=== PATIENT | female | born 1960 | race Caucasian/White ===

== ENCOUNTER → 2018-09-27 12:12 | Outpatient (CLI) | payer OTHER, SELFPAY ==
--- NOTE | 2018-09-27 12:19 | XR_ITS ---
XR hand LT min 3V HISTORY: Posttraumatic pain ITS.REASON: LT AHND PAIN ORDERING PHYSICIAN: Francie Lauren PATIENT AGE: 58 years COMPARISON: None FINDINGS: No fracture or dislocation. No lytic or blastic change. There is normal mineralization.. The joint spaces are well-preserved. No significant degenerative/arthritic changes. No erosive changes evident.. IMPRESSION: Negative, no acute finding
--- NOTE | 2018-09-27 12:19 | XR_ITS ---
XR wrist LT min 3V HISTORY posttraumatic pain ITS.REASON: LT HAND PAIN ORDERING PHYSICIAN: Francie Lauren PATIENT AGE: 58 years Comparison: None FINDINGS: No fracture or dislocation. No lytic or blastic change. There is normal mineralization.. The joint spaces are well-preserved. No significant degenerative/arthritic changes. No erosive changes evident.. IMPRESSION: Negative wrist
== END ==
PROVIDERS: PCP Nurse Practitioner; Visit Provider Nurse Practitioner
DX: M79.642 Pain in left hand (principal)
CPT/HCPCS: 73110; 73130

== ENCOUNTER 2020-09-16 11:30 | Emergency (ER) | payer BC, SELFPAY ==
[2020-09-16 11:40] VITALS: BP 144/74; PULSE 98; RESP 20; TEMP 36.9; O2SAT 99; BMI 23.2
--- NOTE | 2020-09-16 12:03 | HMH.EDUTC ---
[facility] [place] Disposition Clinical Impression: Exposure to COVID-19 virus Disposition: Home, Self-Care Condition on Discharge: Good Instructions: Preventing the Spread of Coronavirus Discharge Instructions Additional Instructions: Drink plenty of fluids. Take tylenol for pain or fever. Return if you begin to have difficulty breathing. Follow up with your regular doctor. GO TO THE ER FOR ANY WORSENING SYMPTOMS Referrals: Ronn German MD [Primary Care Provider] - Time of Disposition: 12:04 Medical Decision Making - Medical Records Medical records reviewed: No: I reviewed the patient's medical records. - Gilson Inquiry Pt receiving controlled substance: No Vital Signs: 09/16/20 11:40 Temperature 98.4 F Temperature Source Oral Pulse Rate [Right Brachial] 98 H Respiratory Rate 20 Blood Pressure [Right Arm] 144/74 H Blood Pressure Mean [Right Arm] 97 Blood Pressure Source [Right Arm] Automatic Cuff Blood Pressure Position [Right Arm] Sitting 02 Sat by Pulse Oximetry 99 Oxygen Delivery Method Room Air [facility] [place] HPI - General Stated complaint: covid exposure Time Seen by Provider: 09/16/20 12:03 Mode of Arrival: Ambulatory Source of Information: Patient Limitations: No Limitations Description of Symptoms (Recalled from Triage Doc. by RN): PATIENT REQUESTING COVID TEST D/T EXPOSURE; C/O RUNNY NOSE HEENT Symptoms (Recalled from RN notes): No Resp Symptoms (Recalled from RN notes): No Skin Symptoms (Recalled from RN notes): No MS Symptoms (Recalled from RN notes): No Functional Status (Recalled from RN notes): WNL - History of Present Illness Provider Complaint: She was exposed to covid at her job. She denies any symptoms other than a runny nose and that is kind of normal for her. - Related Data Allergies Allergy/AdvReac Type Severity Reaction Status Date / Time No Known Allergies Allergy Verified 09/16/20 12:03 - Worker's Comp Is this a Worker's Comp case?: No [facility] History - Hepatitis A Screen Drug use history?: No High risk sexual behaviors?: No History of sexually transmitted infection?: No Currently employed?: No Childcare worker?: No Do you have indoor plumbing?: Yes Do you have electricity?: Yes Attestation statement:: This patient has been screened for Hepatitis A risk factors. I have reviewed the patient's past medical history: Yes - Social History Alcohol Intake: never Occupational Status: other ROS Obtained: Yes All systems reviewed & no additional complaints - Constitutional Constitutional: Reports system reviewed and no additional complaints, except as docu - Eyes Eyes: Reports system reviewed and no additional complaints, except as docu - ENT Ears, Nose, Mouth, and Throat: Reports system reviewed and no additional complaints, except as docu - Cardiovascular Cardiovascular: Reports system reviewed and no additional complaints, except as docu - Respiratory Respiratory: Yes system reviewed and no additional complaints, except as docu - Gastrointestinal Gastrointestingal: Reports: system reviewed and no additional complaints, except as docu Physical Exam - General General appearance: alert, in no apparent distress - Head Head exam: atraumatic, normocephalic, normal inspection - Eye Eye exam: Present: normal appearance, PERRL, EOMI - ENT ENT exam: Present: normal exam, normal oropharynx, mucous membranes moist, TM's normal bilaterally, normal external ear exam - Neck Neck exam: Present: normal inspection, full ROM, trachea midline. Absent: meningismus, lymphadenopathy - Chest Chest inspection: Present: normal inspection, symmetric chest wall rise. Absent: tenderness - Respiratory Respiratory exam: Present: normal lung sounds bilaterally. Absent: respiratory distress - Cardiovascular Cardiovascular exam: Present: regular rate, normal rhythm. Absent: JVD - Abdominal Exam Abdominal exam: Present: soft, normal bowel sounds. Ab
[2020-09-16 12:18] VITALS: BP 144/74; PULSE 98; RESP 20; TEMP 36.9; O2SAT 99
[2020-09-17 09:54] LABS: Covid-19 Nasal PCR Sendout UK Detected
--- NOTE | 2020-09-17 11:38 | PC.NURSE ---
PATIENT NOTIFIED OF POSITIVE COVID RESULTS
== END 2020-09-16 12:20 | disposition home or self-care (01) ==
PROVIDERS: Emergency Provider Nurse Practitioner Family; PCP Family Medicine
DX: U07.1 COVID-19 (principal); R03.0 Elevated blood-pressure reading, without diagnosis of hypertension
CPT/HCPCS: 99201; U0003

== ENCOUNTER 2020-09-23 10:05 | Inpatient (IN) | payer BC, SELFPAY ==
[2020-09-23] VITALS (10 sets, daily range): BP systolic 102–154; BP diastolic 57–84; PULSE 51–85; RESP 14–22; TEMP 36.8–37.2; O2SAT 90–99; BMI 29.2; BMI 33.1
--- NOTE | 2020-09-23 10:36 | XR_ITS ---
PROCEDURE: XR CHEST PORTABLE Referring Doctor: Nathaniel Lacey Patient Age:60Y CLINICAL HISTORY: low oxygen SATURATION, DYSPNEA. COVID POSITIVE COMPARISON: CR CXR CHEST(2 VIEWS-NOT PORTABLE) from 06/03/2016 CT LDCTLCAS LDCT FOR LUNG CA SCREEN from 06/24/2016 CR CXR CHEST(2 VIEWS-NOT PORTABLE) from 09/29/[address] ANGIO CHEST from 09/23/2020 FINDINGS: ap portable upright chest performed today- and compared to previous pa and lateral cxr september 2017. and a a screening ct chest from may 2016 i have also used the subsequent ct chest from today today's ct chest showed scattered bilateral infiltrates which were much more evident on ct than they are on plain film as were patient's underlying developing emphysematous changes these areas of infiltrate can be vaguely identified this cxr. most notable infiltrate on ct was at the periphery of periphery of the rul-and thus seen as a subtle stippled infiltrate and more interstitial process but there is also a subtle infiltrate seen towards the right base in the left lung small area of infiltrate and atelectasis just above left hemidiaphragm of partially obscured left hemidiaphragm. subtle wispy area infiltrate at left mid lung project over the left 3rd rib of vaguely seen. the heart appears normal to upper normal size with normal pulmonary vascularity. the rita and mediastinal structures satisfactory chest wall unremarkable IMPRESSION: BILATERAL INFILTRATE SEEN ON TODAY'S CT CHEST, ARE VERY SUBTLE AND ONLY VAGUELY SEEN TODAY'S PLAIN FILM CXR: . SUBTLE STIPPLED INFILTRATE AT THE RUL IS VAGUELY EVIDENT. . SUBTLE PATCHY INFILTRATE RIGHT AND LEFT LUNG BASE; WELL SMALL VERY SUBTLE FOCUS AT LEFT MIDLUNG CAN BE VAGUELY IDENTIFIED ON TODAY'S CXR WELL Dictated by: Santi Mclaughlin MD 09/23/2020 12:36 Santi Mclaughlin MD in [place] 09/23/2020 12:36
[2020-09-23 10:42] LABS: Basophils % 1.3 % (0.1-2.0); Eosinophils % 0.1 % (0.1-12.0); Hematocrit 50.8 % (37.0-47.0); Lymphocytes # 0.6 K/mm3 (0.7-4.5); Lymphocytes % 19.5 % (10-50); Mean Corpuscular HGB Conc 33.5 g/dL (31.8-35.4); Mean Corpuscular Hemoglobin 30.8 pg (27.0-31.2); Mean Corpuscular Volume 91.7 fl (81-99); Mean Platelet Volume 10.3 fl (7.4-10.4); Monocytes # 0.2 K/mm3 (0.1-1.0); Monocytes % 6.4 % (1.7-9.3); Neutrophils # 2.4 K/mm3 (1.8-7.8); Neutrophils % 72.7 % (37.0-80.0); Platelet Count 149 K/mm3 (142-424); Red Blood Count 5.54 M/mm3 (4.20-5.40); Red Cell Distribution Width 13.3 % (11.5-17.5); White Blood Count 3.3 K/mm3 (4.8-10.8)
[2020-09-23 10:48] LABS: Alanine Aminotransferase 35 U/L (12-78); Albumin Level 4.6 g/dl (3.5-5.0); Albumin/Globulin Ratio 1.1 (1.1-1.8); Alkaline Phosphatase 105 U/L (38-126); Aspartate Amino Transferase 57 U/L (14-36); Bilirubin,Total 0.5 mg/dl (0.2-1.3); Blood Urea Nitrogen 17 mg/dl (7-17); Calcium 9.4 mg/dl (8.4-10.2); Carbon Dioxide 30 mmol/L (22.0-30.0); Chloride 97 mmol/L (98-107); Creatinine Clearance Estimated 71 mL/min (50-200); Estimated Glomerular Filt Rate 56 ml/min (>60); GFR (African American) 68 ML/MIN (>60); Globulin 4.1 g/dL (1.3-3.2); Glucose 117 mg/dl (74-100); Sodium 134 mmol/L (136-145); Total Protein,Serum 8.7 g/dl (6.3-8.2)
--- NOTE | 2020-09-23 10:55 | CT_ITS ---
Procedure: CT ABDOMEN PELVIS W CON Referring Doctor: Nathaniel Lacey Patient Age:60Y CLINICAL INDICATION: abdo pain EPIGASTRIC PAIN WITH NAUSEA, VOMITING DIARRHEA 3 DAYS COVID POSITIVE COMPARISON: CT LDCTLCAS LDCT FOR LUNG CA SCREEN from 06/24/2016 TECHNIQUE: Axial images obtained with sagittal and coronal reformats. All CT scans at the facility use one or more dose reduction, viz: automated exposure control, ma/kV adjustment per patient size (including targeted exams where dose is matched to indication, i.e. head), or iterative reconstruction technique. FINDINGS: lower thorax: small focal areas of infiltrate and atelectasis in lung bases. for example small slightly nodular likely inflammatory focus at rml and periphery rico (axial image 2 and 3) small patchy atelectasis and likely minimal infiltrate posterior rll) axial image 2) . Abdomen: . Liver: No masses. mildly prominent intrahepatic ducts throughout liver particularly central portion of liver. this may merely reflect previous cholecystectomy changes but warrants correlation with serum bilirubin the common duct inferior to the liver and through the pancreas appears generous but normal caliber. . Gallbladder: Surgically removed. common duct inferior to the gallbladder fossa and through pancreas appears normal the size for post cholecystectomy patient the. Pancreas: no masses or peripancreatic fluid collections. spleen: unremarkable adrenals: unremarkable kidneys/ureters: unremarkable kidneys with normal enhancement. no renal calculi or obstruction. ureters unremarkable the PELVIS: THE reproductive: Hysterectomy. no adnexal masses. no free fluid pelvis Bladder: Nondistended. No obvious stones or masses. Appendix: Unremarkable. Gi Tract ---- small to moderate sliding hiatal hernia . Stomach unremarkable . Small-bowel: Slight increased fluid a distal small bowel, but no significant dilatation a few of the small bowel loops are upper normal in caliber at the upper pelvis. no wall thickness . Appendix-normal: No evidence of appendicitis. . Large bowel: liquid stool throughout the right colon, hepatic flexure and transverse colon. generous air-fluid level at 9 dilated transverse colon on axial slice 53, 51 but this reflects developing diarrhea. the left colon is fairly empty with lack of solid or liquid stool. upper normal wall thickness rectum most likely reflects lack of distension. peritoneum: no abnormal fluid collections. no obvious inflammatory changes. no free air. lymph nodes: no enlarged lymph nodes apparent. vasculature: atherosclerotic calcification lower abdominal aorta and iliac vessels but no aneurysm.. no retroperitoneal findings. bones: no acute findings or lesions minimal degenerative changes lumbar spine primarily seen as developing facet hypertrophy lower l-spine IMPRESSION: 1... Liquid Stool Throughout The Right And Transverse Colon-suggestive Of Developing Diarrhea . Increased Fluid Throughout The Distal Small Bowel With Some Small Bowel Loops Upper Normal Caliber.. . These ABOVE findings May Reflect Enterocolitis 2.. Cholecystectomy. 3.Mildly Prominent Intrahepatic Biliary Ducts Observed And Warrant Correlation With Serum Bilirubin But Most Likely Reflect Post Cholecystectomy Changes. 4. again see scattered PROBABLE small inflammatory appearing foci, along with atelectasis, AT THE lung bases bilaterally Dictated by: Santi Mclaughlin MD 09/23/2020 12:26 Santi Mclauhglin MD in [place] 09/23/2020 12:26
--- NOTE | 2020-09-23 10:56 | HMH.EDGENADL ---
ED Disposition Clinical Impression: COVID-19 virus infection, Pneumonia due to COVID-19 virus, Hypoxia Diarrhea Qualifiers: Diarrhea type: presumed infectious Qualified Code(s): R19.7 - Diarrhea, unspecified Disposition: Admitted As Inpatient Condition on Discharge: Fair - Critical Care Critical Care Time: No Attestation: On 09/23/20, the high probability of a clinically significant, sudden or life threatening deterioration of the following system(s) required my full and direct attention, intervention and personal management. The time I documented below is in addition to time spent performing reported procedures but includes the following listed in this critical care notation. Medical Decision Making - Medical Records Medical records reviewed: Yes: I reviewed the patient's medical records. MR Comment: Reviewed visit from 1 week ago with positive Covid PCR test. - Gilson Inquiry Pt receiving controlled substance: Yes Gilson was queried for this patient: No Reason not queried -: Emergent pt cond-no time Risks and benefits of using a controlled substance: were not discussed with pt by me Vital Signs: 09/23/20 10:06 09/23/20 10:36 09/23/20 11:51 Temperature 99.0 F Temperature Source Oral Pulse Rate [Left Radial] 74 67 Respiratory Rate 18 Blood Pressure [Right Arm] 132/77 144/71 H Blood Pressure Mean [Right Arm] 95 95 Blood Pressure Source [Right Arm] Automatic Cuff Automatic Cuff Blood Pressure Position [Right Arm] Sitting Sitting 02 Sat by Pulse Oximetry 90 L 95 99 Oxygen Delivery Method Room Air Nasal Cannula Nasal Cannula Oxygen Flow Rate (LPM) 2 2 09/23/20 12:14 09/23/20 12:40 Temperature Temperature Source Pulse Rate [Left Radial] 73 81 Respiratory Rate Blood Pressure [Right Arm] 152/74 H 154/84 H Blood Pressure Mean [Right Arm] 100 107 Blood Pressure Source [Right Arm] Automatic Cuff Automatic Cuff Blood Pressure Position [Right Arm] Sitting Sitting 02 Sat by Pulse Oximetry 92 L 97 Oxygen Delivery Method Nasal Cannula Nasal Cannula Oxygen Flow Rate (LPM) 2 2 - Lab Data Lab results reviewed: Yes: I reviewed the patient's lab results. Lab Results 09/23/20 10:20: WBC 3.3 L, RBC 5.54 H, Hgb 17.0 H, Hct 50.8 H, MCV 91.7, MCH 30.8, MCHC 33.5, RDW 13.3, Plt Count 149, MPV 10.3, Neut % (Auto) 72.7, Lymph % (Auto) 19.5, [place] % (Auto) 6.4, Eos % (Auto) 0.1, Baso % (Auto) 1.3, Neut # (Auto) 2.4, Lymph # (Auto) 0.6 L, [place] # (Auto) 0.2, Eos # (Auto) 0.0, Baso # (Auto) 0.0 09/23/20 10:20: Sodium 134 L, Potassium 4.0, Chloride 97 L, Carbon Dioxide 30, Anion Gap 11.0, BUN 17, Creatinine 1.00, Estimated Creat Clear 71, Estimated GFR 56 L, Est GFR ( Amer) 68, Glucose 117 H, Calcium 9.4, Total Bilirubin 0.5, AST 57 H, ALT 35, Alkaline Phosphatase 105, Total Protein 8.7 H, Albumin 4.6, Globulin 4.1 H, Albumin/Globulin Ratio 1.1 09/23/20 10:20: Lipase 78 09/23/20 10:20: SARS-CoV-2 IgG Ab (Rapid) Positive A, SARS-CoV-2 IgM Ab (Rapid) Negative Result diagrams: 09/23/20 10:20 09/23/20 10:20 Orders (Tests/Meds): ED MEDICATIONS Generic Name Dose Route Start Last Admin Trade Name Freq PRN Reason Stop Dose Admin Acetaminophen 650 mg 09/23/20 13:09 Acetaminophen 325mg Tab PO 10/23/20 13:08 Q6HP PRN Mild pain,fever,headache Ascorbic Acid 500 mg 09/23/20 13:09 Ascorbic Acid 500mg Tab PO 10/23/20 13:08 QID ROSSI Dexamethasone Sodium Phosphate 6 mg 09/23/20 13:09 Dexamethasone 4mg/Ml 1ml Vial IV 10/23/20 13:08 DAILY ROSSI Enoxaparin Sodium 40 mg 09/23/20 13:09 Enoxaparin 40mg/0.4ml Syringe SQ 10/23/20 13:08 DAILY ROSSI Ergocalciferol 50,000 unit 09/23/20 13:09 Ergocalciferol 50,000 Units (1.25mg) Capsule PO 10/23/20 13:08 WEEKLY ROSSI Famotidine 20 mg 09/23/20 13:15 Famotidine 20mg Tablet PO 10/23/20 13:14 BID ROSSI Levofloxacin/Dextrose 750 mg in 150 mls @ 100 mls/hr 09/24/20 12:45 Levofloxacin 750mg/150ml Premix I
--- NOTE | 2020-09-23 10:59 | CT_ITS ---
PROCEDURE: CT ANGIO CHEST Referring Doctor: Nathaniel Lacey Patient Age:60Y CLINCIAL INDICATION: hypoxia, pleuritic pain PATIENT COVID POSITIVE DYSPNEA SHORT OF BREATH EPIGASTRIC PAIN NAUSEA VOMITING DIARRHEA 3 DAYS COMPARISON: CT CT ABDOMEN PELVIS W CON from 09/23/2020 TECHNIQUE: iv contrast: bolus 70ml isovue 370 followed by 40 ml normal saline bolus helical axial images obtained with thickened axial along with mip p slab sagittal and coronal reformats performed on ct workstation. all ct scans at the facility use one or more dose reduction, viz: automated exposure control, ma/kv adjustment per patient size (including targeted exams where dose is matched to indication, i.e. head), or iterative reconstruction technique. FINDINGS: pulmonary arteries: no pulmonary embolus evident. good visualization pulmonary arteries overall aorta: appears satisfactory with no acute finding. no thoracic aortic aneurysm or dissection evident lungs: underlying emphysematous changes. bilateral infiltrates most evident on right right chest: Most notable region of infiltrate is seen at superimposed upon emphysematous changes at the periphery of the right upper lobe. small numerous blebs in this region. there is also several areas of small patchy infiltrates and atelectasis along the posterior and posterior medial aspect of the right lower lobe.. left chest: Small foci of peripheral infiltrate.-for example at the posterior aspect LULjust anterior to the major fissure superiorly WHERE there are 2 small areas of patchy infiltrate (axial image 25-29) . More inferiorly there is a small patchy infiltrate possible small underlying nodular density seen at the periphery of the LLL on axial slice 44... More inferiorly towards just above left hemidiaphragm at left lung bases are other areas of atelectasis with possible minor infiltrate. (axial slice 54, and 55 coronal 51) pleural spaces: no significant effusion. no evidence of pneumothorax. Heart: upper normal heart size. no significant pericardial effusion. Mediastinal and hilar structures: scattered small mediastinal lymph nodes but no mediastinal or hilar mass evident. no dominant adenopathy bony structures: no acute bony abnormalities apparent. lymph nodes: no enlarged lymph nodes evident.: upper abdomen: small hiatal hernia. cholecystectomy. IMPRESSION: No Evidence Of Pulmonary Embolism. Aorta Satisfactory. Underlying Emphysematous Changes Bilateral PULMONARY infiltrates:. Infiltrate most notable involvement At Right Chest . Most Prominent region of Infiltrate Periphery RUL. . Patchy Small Areas Of Infiltrate Elsewhere RUL, RLL, with a few small Inflammatory Foci Suggested Throughout Left Lung . Dictated by: Santi Mclaughlin MD 09/23/2020 12:05 Santi Mclaughlin MD in [place] 09/23/2020 12:05
[2020-09-23 11:04] LABS: Lipase 78 U/L (23-300)
--- NOTE | 2020-09-23 11:10 | PC.NURSE ---
pt to CT
--- NOTE | 2020-09-23 11:10 | PC.NURSE ---
Pt to rad
--- NOTE | 2020-09-23 12:47 | PC.NURSE ---
Dr German returned call
[2020-09-23 13:02] LABS: Coronavirus 19 IgG Antibody Positive (Negative); Coronavirus 19 IgM Antibody Negative (Negative)
[2020-09-23 13:15] LABS: Lactic Acid 0.9 mmol/L (0.7-2.1)
--- NOTE | 2020-09-23 14:08 | HMH.PHAVTE ---
[facility] Pharmacy VTE Monitoring - Patient Demographics Admission date: 09/23/20 Report Date: 09/23/20 Time: 14:08 Allergies/Adverse Reactions: Patient Allergies No Known Allergies Allergy (Verified 09/16/20 12:03) Height: 1.63 m Weight: 87.685 kg Patient Problems: Current Active Problems COVID-19 virus infection (Acute) Pneumonia due to COVID-19 virus (Acute) Diarrhea (Acute) Hypoxia (Acute) - VTE Risk Labs: VTE Related Lab Results Hgb 17.0 g/dL (12.2-16.2) H 09/23/20 10:20 Hct 50.8 % (37.0-47.0) H 09/23/20 10:20 Plt Count 149 K/mm3 (142-424) 09/23/20 10:20 BUN 17 mg/dl (7-17) 09/23/20 10:20 Creatinine 1.00 mg/dl (0.52-1.04) 09/23/20 10:20 Estimated Creat Clear 71 mL/min (50-200) 09/23/20 10:20 Was VTE Risk Assessment Performed: Yes VTE Score: 2 - Prophylaxis VTE Prophylaxis Ordered?: Yes Types of VTE Prophylaxis: Pharmacological Pharmacologic Type: Enoxaparin
--- NOTE | 2020-09-23 16:48 | PC.NURSE ---
Pt new admission. Currently on 2 L O2 per nasal cannula. Pt is on cont pulse ox and sats range 95-95%. No complaints voiced since arriving to floor. Lungs diminished upon auscultation. No cough noted. Abdomen soft, tender w/ active Bs in all quads. Pt did have one episode of vomitting when she was transferring from stretcher to bed when jessica to floor, which she states is partly from being dizzy when getting up and down, but has not had any since. No BM since [employer]. Pt aware that stool specimen is needed. Skin intact. No edema present. IVF infusing in LAC. Pt currently sitting in bed w/ dinner try. Call montanez w/in reach.
[2020-09-24] VITALS (7 sets, daily range): BP systolic 102–147; BP diastolic 56–72; PULSE 44–90; RESP 16–18; TEMP 36.6–37.2; O2SAT 92–96; BMI 33.0; BMI 33.1
[2020-09-24 05:11] LABS: Basophils % 1.4 % (0.1-2.0); Eosinophils % 0.2 % (0.1-12.0); Hematocrit 53.1 % (37.0-47.0); Hemoglobin 17.7 g/dL (12.2-16.2); Lymphocytes # 0.7 K/mm3 (0.7-4.5); Lymphocytes % 35.3 % (10-50); Mean Corpuscular HGB Conc 33.2 g/dL (31.8-35.4); Mean Corpuscular Volume 93.3 fl (81-99); Monocytes # 0.2 K/mm3 (0.1-1.0); Monocytes % 8.1 % (1.7-9.3); Neutrophils # 1.2 K/mm3 (1.8-7.8); Neutrophils % 54.9 % (37.0-80.0); Platelet Count 137 K/mm3 (142-424); Red Cell Distribution Width 13.2 % (11.5-17.5); White Blood Count 2.1 K/mm3 (4.8-10.8)
[2020-09-24 05:23] LABS: Alanine Aminotransferase 288 U/L (12-78); Albumin Level 4.5 g/dl (3.5-5.0); Albumin/Globulin Ratio 1.1 (1.1-1.8); Alkaline Phosphatase 253 U/L (38-126); Anion Gap 15.2 mEq/L (5-15); Aspartate Amino Transferase 315 U/L (14-36); Bilirubin,Total 0.4 mg/dl (0.2-1.3); Blood Urea Nitrogen 13 mg/dl (7-17); Calcium 9.2 mg/dl (8.4-10.2); Carbon Dioxide 23 mmol/L (22.0-30.0); Chloride 103 mmol/L (98-107); Creatinine Clearance Estimated 81 mL/min (50-200); Estimated Glomerular Filt Rate 73 ml/min (>60); GFR (African American) 88 ML/MIN (>60); Globulin 4.1 g/dL (1.3-3.2); Glucose 110 mg/dl (74-100); Potassium 4.2 mmoL/L (3.5-5.1); Sodium 137 mmol/L (136-145); Total Protein,Serum 8.6 g/dl (6.3-8.2)
--- NOTE | 2020-09-24 05:45 | PC.NURSE ---
Pt has rested well this shift. Pt is A&Ox4. Lung sounds are diminished t/o. Bowel sounds active in all 4 quads. Pt takes self to the toilet independently. Pt has had no c/o SOA this shift and continues to be on 2 L NC with 02 sats between 94-95%. No other acute changes or complaints at this time.
--- NOTE | 2020-09-24 09:22 | HMH.HP ---
*Admission Date: 09/23/20 <Natasha Benavides - 09/24/20 09:43> *Chief complaint: Feels that she is dehydrated from the diarrhea. <Natasha Benavides - 09/24/20 09:43> *History of present illness: Ms. Oliva is a 60-year-old female who is healthy and currently takes no regular medications. She presented to the [facility] emergency room after experiencing 6 days of diarrhea with 1-2 stools a day of watery brown stool. She states she was nauseated but never vomited. She did have some stomach cramping. She described a poor p.o. intake and felt dehydrated. She states she continued to void. She denies any respiratory symptoms. She did have some body aches which she associated with the diarrhea. The following is from ER documentation: She tested positive for COVID-19, had a test 1 week ago. Initially did not feel bad, but since has declined. She says that she has developed abdominal pain across her lower abdomen, diarrhea, severe nausea. The only thing she can take orally is popsicles. Very fatigued, feels dehydrated. She feels chilled, but no fevers when she takes it at home. No blood in her diarrhea. Denies cough or shortness of breath, but says she has a pain in her posterior thoracic area when she takes in a breath. She states everyone in her workplace has the Covid. With evaluation in the emergency room. CBC with a White count at 3300 with a hemoglobin of 17 hematocrit of 50.8. Electrolytes showed a sodium of 134 and potassium of 4; kidney function was normal. Liver function studies were slightly elevated on admission with AST at 57 and with repeat this a.m. at 315 with ALT at 288 and alkaline phosphatase of 253. Covid IgG was positive Covid IgM was negative; blood culture results are pending. Chest x-ray revealed bilateral infiltrates seen on CT of the chest. CT of the abdomen and pelvis reveals liquid stool throughout the right and transverse colon suggesting developing diarrhea. Also increased flow throughout the distal small bowel with some small bowel loops Possibly reflecting enterocolitis. She was thus admitted to the Covid unit and placed on Covid orders. This a.m. patient states she feels much better after receiving IV fluids. She has had no diarrhea. She is voiding without difficulty. She denies chest pain and shortness of breath. <BenavidesNatasha barry 09/24/20 09:43> [facility] History Medical History: Reports:: Hypertension <MakaylaNatasha 09/24/20 09:43> *Have you ever received a pneumonia vaccine?: No <BenavidesNatasha barry 09/24/20 09:43> *Have you received a flu vaccine this season?: No <Ntaasha Benavides 09/24/20 09:43> Comment:: Rosacea <Natasha Benavides 09/24/20 09:43> Other Surgeries: Yes: Cholecystectomy, Hysterectomy-Total <BenavidesNatasha barry 09/24/20 09:43> - *Social History Last grade of school completed: Some college <Natasha Benavides 09/24/20 09:43> Smoking End Date: Quit smoking in 2008; 80 pack/year <Natasha Benavides 09/24/20 09:43> Alcohol Intake: never <Natasha Benavides 09/24/20 09:43> *Occupational Status:: employed <Natasha Benavides 09/24/20 09:43> Housing: house <BenavidesNatasha barry 09/24/20 09:43> Household Members: spouse <Natasha Benavides 09/24/20 09:43> *Travel in the last 8 weeks: None <Natasha Benavides 09/24/20 09:43> Family Hx:: Cancer <Natasha Benavides 09/24/20 09:43> Comment: Heart disease <Natasha Benavides 09/24/20 09:43> Review of Systems - Constitutional Reports chills, Reports headache(s), Reports weakness <Natasha Benavides 09/24/20 09:43> - Eyes Denies change in vision <Natasha Benavides 09/24/20 09:43> - ENT Denies ear pain, Denies nasal congestion, Denies sore throat <Natasha Benavides 09/24/20 09:43> - *Cardiovascular Reports chest pain (On inspiration) <Natasha Benavides 09/24/20 09:43> - *Respiratory Denies cough, Denies shortness of breath <Natasha Benavides 09/24/20 09:43> - *Gastrointestinal Reports abdominal pain, Reports cramping, Reports loose stools (W
[2020-09-25] VITALS (7 sets, daily range): BP systolic 106–127; BP diastolic 45–76; PULSE 49–65; RESP 16–18; TEMP 36.7–36.8; O2SAT 92–97; BMI 34.0
--- NOTE | 2020-09-25 03:53 | PC.NURSE ---
Pt has rested well this shift. Pt is A&Ox4. Lung sounds remain diminished t/o. Pt continues to be on 2L NC with o2 sats between 94-97%. Specimen cup placed at bedside for sputum sample this shift. Active bowel sounds in all 4 quads. No BM reported this shift. Pt continues to ambulate to toilet independently and is urinating clear, light yellow urine. Pt has c/o back pain x1 this shift, with favorable results after PRN Tylenol administration. No other acute changes or complaints at this time.
[2020-09-25 05:20] LABS: Basophils % 0.2 % (0.1-2.0); Eosinophils % 0.1 % (0.1-12.0); Hematocrit 46.1 % (37.0-47.0); Lymphocytes # 0.9 K/mm3 (0.7-4.5); Lymphocytes % 18.6 % (10-50); Mean Corpuscular HGB Conc 32.9 g/dL (31.8-35.4); Mean Corpuscular Hemoglobin 30.2 pg (27.0-31.2); Mean Corpuscular Volume 91.8 fl (81-99); Monocytes # 0.3 K/mm3 (0.1-1.0); Monocytes % 5.3 % (1.7-9.3); Neutrophils # 3.8 K/mm3 (1.8-7.8); Neutrophils % 75.7 % (37.0-80.0); Platelet Count 147 K/mm3 (142-424); Red Blood Count 5.02 M/mm3 (4.20-5.40); Red Cell Distribution Width 12.9 % (11.5-17.5)
[2020-09-25 05:21] LABS: Chloride 108 mmol/L (98-107); Sodium 139 mmol/L (136-145)
[2020-09-25 05:22] LABS: Potassium 3.9 mmoL/L (3.5-5.1)
[2020-09-25 05:24] LABS: Alanine Aminotransferase 146 U/L (12-78); Albumin Level 3.7 g/dl (3.5-5.0); Albumin/Globulin Ratio 1.1 (1.1-1.8); Alkaline Phosphatase 155 U/L (38-126); Anion Gap 7.9 mEq/L (5-15); Aspartate Amino Transferase 98 U/L (14-36); Bilirubin,Total 0.3 mg/dl (0.2-1.3); Blood Urea Nitrogen 15 mg/dl (7-17); Carbon Dioxide 27 mmol/L (22.0-30.0); Creatinine Clearance Estimated 83 mL/min (50-200); Estimated Glomerular Filt Rate 63 ml/min (>60); GFR (African American) 77 ML/MIN (>60); Globulin 3.3 g/dL (1.3-3.2)
[2020-09-25 05:25] LABS: Calcium 8.9 mg/dl (8.4-10.2); Glucose 108 mg/dl (74-100)
[2020-09-25 05:35] LABS: Hemoglobin 15.2 g/dL (12.2-16.2)
[2020-09-25 10:53] LABS: Adenovirus F 40/41, stool Not Detected (NotDetected); Astrovirus Not Detected (NotDetected); Campylobacter Not Detected (NotDetected); Clostridium Difficile A/B, PCR Not Detected (NotDetected); Cryptosporidium Not Detected (NotDetected); Cyclospora Cayetanesis Not Detected (NotDetected); Entamoeba histolytica Not Detected (NotDetected); Enteroaggregative E coli Not Detected (NotDetected); Enteropathogenic E coli Not Detected (NotDetected); Enterotoxigenic E coli Not Detected (NotDetected); Giardia lamblia Not Detected (NotDetected); Norovirus Not Detected (NotDetected); Plesimonas Shigalloides, PCR Not Detected (NotDetected); Rotavirus A Not Detected (NotDetected); Salmonella, PCR Not Detected (NotDetected); Sapovirus Not Detected (NotDetected); Shiga-like toxin E coli Not Detected (NotDetected); Shigella Enterovasive E coli Not Detected (NotDetected); Vibrio Cholerae Not Detected (NotDetected); Vibrio, PCR Not Detected (NotDetected); Yersinia Entercolitica, PCR Not Detected (NotDetected)
--- NOTE | 2020-09-25 11:10 | PC.NURSE ---
Patient has been off oxygen for the last 2 hours with no complaints of SOB. Patient walked to the bathroom with no complaints of complications. Patient is currently sating 92-94%. Will continue to monitor.
--- NOTE | 2020-09-25 11:20 | P.PN_ITS ---
Internal Medicine - PN: Subj *Date: 09/25/20 *Time: 11:20 Interval history: Did not sleep well related to backache from the bed. She has had no further diarrhea. Abdominal cramping is improved. Denies shortness of breath. No significant cough. Exam Vital signs and Labs for Last 24 Hours: Temp Pulse Resp BP Pulse Ox 98.2 F 62 17 127/67 95 09/25/20 07:58 09/25/20 07:58 09/25/20 07:58 09/25/20 07:58 09/25/20 08:00 Laboratory Results - last 24 hr 09/25/20 04:35: WBC 5.0 D, RBC 5.02, Hgb 15.2 D, Hct 46.1, MCV 91.8, MCH 30.2, MCHC 32.9, RDW 12.9, Plt Count 147, MPV 11.0 H, Neut % (Auto) 75.7, Lymph % (Auto) 18.6, [place] % (Auto) 5.3, Eos % (Auto) 0.1, Baso % (Auto) 0.2, Neut # (Auto) 3.8, Lymph # (Auto) 0.9, [place] # (Auto) 0.3, Eos # (Auto) 0.0, Baso # (Auto) 0.0 09/25/20 04:35: Sodium 139, Potassium 3.9, Chloride 108 H, Carbon Dioxide 27, Anion Gap 7.9, BUN 15, Creatinine 0.90, Estimated Creat Clear 83, Estimated GFR 63, Est GFR ( Amer) 77, Glucose 108 H, Calcium 8.9, Total Bilirubin 0.3, AST 98 H D, ALT 146 H D, Alkaline Phosphatase 155 H, Total Protein 7.0, Albumin 3.7 D, Globulin 3.3 H, Albumin/Globulin Ratio 1.1 I & O for Last 24 hours: Intake & Output 09/22/20 09/23/20 09/24/20 09/25/20 11:59 11:59 11:59 11:59 Intake Total 2520 / 2520 2110 / 2110 Output Total 800 / 800 3150 / 3150 Balance 1720 / 1720 -1040 / -1040 Weight 170 lb 193 lb 4 oz 199 lb 4 oz Microbiology Reports for the Last 24 Hours: Microbiology 09/23/20 12:36 Blood Blood Culture - Preliminary Gram Positive Cocci Narrative: Sitting up in chair. Color is good. No respiratory distress. Lungs are clear. Heart is regular. Abdomen is soft and nondistended with no tenderness. Assessment and Plan (1) Diarrhea Status: Acute Qualifiers: Diarrhea type: presumed infectious Qualified Code(s): R19.7 - Diarrhea, unspecified Category: Medical Code(s): R19.7 - Diarrhea, unspecified (2) Pneumonia due to COVID-19 virus Status: Acute Category: Medical Code(s): U07.1 - COVID-19; J12.89 - Other viral pneumonia - Assessment and plan all Dx Assessment and Plan for all problems:: Continue current medications. Wean to room air today as tolerated.
--- NOTE | 2020-09-25 14:23 | PC.NURSE ---
Patients family member brought patient a heated throw blanket. Patient is currently using it due to the room being extremely cold.
--- NOTE | 2020-09-25 18:24 | PC.NURSE ---
End of shift note. Patient reports that she is feeling much better. She has had great oral intake today as well as output. Patient denies any pain. Patient denies any SOB with or without exertion. Patient has remained off her oxygen all day after being taken off this morning, her o2 sats have been 92-96% all day. Patients lungs were clear on auscultation. She continues to have a 20g in LAC with NS @ 100. She is on Lovenox for VTE Prophylaxis. Patients stool sample for diarrhea panel was collected today, awaiting results. Still unable to collect a sputum. Patient is independent and mobility is up ad juancarlos. Will continue to monitor.
[2020-09-26] VITALS: BP 111/88; PULSE 56; RESP 16; TEMP 36.7; O2SAT 93
--- NOTE | 2020-09-26 02:06 | PC.NURSE ---
Pt's o2 sats dropped to 88-89%. 1 L NC applied to pt. o2 sats up 96% at this time.
[2020-09-26 04:00] VITALS: BP 126/71; PULSE 59; RESP 16; TEMP 36.7; O2SAT 93
[2020-09-26 05:00] VITALS: BMI 34.0
--- NOTE | 2020-09-26 06:01 | PC.NURSE ---
Pt has rested well this shift. Lung sounds remain diminished. Pt continues to be on 1 L NC with 02 sats between 90-96%. Bowel sounds active in all 4 quads. Pt continues to ambulate independently to and from the toilet. Pt is urinating clear, yellow urine. No other acute changes or complaints at this time. Will continue to monitor.
[2020-09-26 06:15] LABS: Chloride 109 mmol/L (98-107); Sodium 140 mmol/L (136-145)
[2020-09-26 06:16] LABS: Potassium 3.7 mmoL/L (3.5-5.1)
[2020-09-26 06:18] LABS: Alanine Aminotransferase 95 U/L (12-78); Alkaline Phosphatase 117 U/L (38-126); Anion Gap 8.7 mEq/L (5-15); Aspartate Amino Transferase 49 U/L (14-36); Bilirubin,Total 0.2 mg/dl (0.2-1.3); Blood Urea Nitrogen 16 mg/dl (7-17); Carbon Dioxide 26 mmol/L (22.0-30.0); Creatinine Clearance Estimated 83 mL/min (50-200); Estimated Glomerular Filt Rate 73 ml/min (>60); GFR (African American) 88 ML/MIN (>60)
[2020-09-26 06:19] LABS: Albumin Level 3.3 g/dl (3.5-5.0); Albumin/Globulin Ratio 1.1 (1.1-1.8); Calcium 8.5 mg/dl (8.4-10.2); Globulin 3.1 g/dL (1.3-3.2); Glucose 90 mg/dl (74-100); Total Protein,Serum 6.4 g/dl (6.3-8.2)
[2020-09-26 06:20] LABS: Basophils % 0.4 % (0.1-2.0); Eosinophils % 0.1 % (0.1-12.0); Hematocrit 44.3 % (37.0-47.0); Hemoglobin 14.7 g/dL (12.2-16.2); Lymphocytes # 1.1 K/mm3 (0.7-4.5); Lymphocytes % 19.3 % (10-50); Mean Corpuscular HGB Conc 33.2 g/dL (31.8-35.4); Mean Corpuscular Hemoglobin 30.2 pg (27.0-31.2); Monocytes # 0.4 K/mm3 (0.1-1.0); Monocytes % 7.1 % (1.7-9.3); Neutrophils # 4.1 K/mm3 (1.8-7.8); Neutrophils % 73.1 % (37.0-80.0); Platelet Count 164 K/mm3 (142-424); Red Blood Count 4.87 M/mm3 (4.20-5.40); White Blood Count 5.6 K/mm3 (4.8-10.8)
--- NOTE | 2020-09-26 06:42 | PC.NURSE ---
Pt is now on RA. o2 sat 94%
[2020-09-26 08:00] VITALS: BP 150/89; PULSE 64; RESP 16; TEMP 36.6; O2SAT 97
--- NOTE | 2020-09-26 08:15 | HMH.ACPN2 ---
<Natasha Benavides - Last Filed: 09/26/20 08:15> Internal Medicine - PN: Subj *Date: 09/26/20 *Time: 08:15 Interval history: Patient feels she is doing well. She denies shortness of breath and cough. She is having no chest pain. She is eating and drinking well. She states her bowels did move yesterday and were a little loose. She is voiding QS. She ambulates to the bathroom without difficulty. Her biggest complaint is the cold room. CBC results are essentially normal. Blood chemistries show normal renal function and potassium. Liver function studies have improved with a decrease in AST to 49, ALT to 95 and normal alkaline phosphatase. Blood cultures are positive for Staphylococcus hominis. Patient remains on Levaquin daily, remdesivir and IV fluids at 100 an hour. Patient did have decrease in her O2 sats to 88 to 89% noted around 2 AM. She had nasal cannula reapplied at 1 L/min after which O2 sats did improve. She is currently on room air with O2 sat at 94%. Exam Vital signs and Labs for Last 24 Hours: Temp Pulse Resp BP Pulse Ox 97.9 F 64 16 150/89 H 97 09/26/20 08:00 09/26/20 08:00 09/26/20 08:00 09/26/20 08:00 09/26/20 08:00 Laboratory Results - last 24 hr 09/26/20 05:00: WBC 5.6, RBC 4.87, Hgb 14.7, Hct 44.3, MCV 91.0, MCH 30.2, MCHC 33.2, RDW 13.0, Plt Count 164, MPV 12.0 H, Neut % (Auto) 73.1, Lymph % (Auto) 19.3, [place] % (Auto) 7.1, Eos % (Auto) 0.1, Baso % (Auto) 0.4, Neut # (Auto) 4.1, Lymph # (Auto) 1.1, [place] # (Auto) 0.4, Eos # (Auto) 0.0, Baso # (Auto) 0.0 09/26/20 05:00: Sodium 140, Potassium 3.7, Chloride 109 H, Carbon Dioxide 26, Anion Gap 8.7, BUN 16, Creatinine 0.80, Estimated Creat Clear 83, Estimated GFR 73, Est GFR ( Amer) 88, Glucose 90, Calcium 8.5, Total Bilirubin 0.2, AST 49 H D, ALT 95 H D, Alkaline Phosphatase 117, Total Protein 6.4, Albumin 3.3 L D, Globulin 3.1, Albumin/Globulin Ratio 1.1 I & O for Last 24 hours: Intake & Output 09/23/20 09/24/20 09/25/20 09/26/20 11:59 11:59 11:59 11:59 Intake Total 2520 / 2520 2110 / 2110 3750 / 3750 Output Total 800 / 800 3150 / 3150 2350 / 2350 Balance 1720 / 1720 -1040 / -1040 1400 / 1400 Weight 170 lb 193 lb 4 oz 199 lb 4 oz 199 lb 3.99 oz Microbiology Reports for the Last 24 Hours: Microbiology 09/23/20 12:36 Blood Blood Culture - Preliminary Staphylococcus hominis 09/23/20 12:36 Blood Blood Culture - Preliminary NO GROWTH AFTER 48 HOURS - Constitutional no acute distress Comments: Sitting on the bedside and appears comfortable with many blankets wrapped around her - *Routine Respiratory Exam Present: CTA bilaterally (Anteriorly and posteriorly) - *Routine Cardiovascular Exam Present: RRR - *Routine Abdominal Exam Present: soft. Absent: tenderness - *Routine Extremities Exam Absent: edema, calf tenderness - *Routine Neurological Exam Present: alert, oriented X3 Assessment and Plan (1) Diarrhea Status: Acute Qualifiers: Diarrhea type: presumed infectious Qualified Code(s): R19.7 - Diarrhea, unspecified Category: Medical Code(s): R19.7 - Diarrhea, unspecified (2) Pneumonia due to COVID-19 virus Status: Acute Category: Medical Code(s): U07.1 - COVID-19; J12.89 - Other viral pneumonia (3) Transaminitis Status: Acute Category: Medical Code(s): R74.01 - Elevation of levels of liver transaminase levels - Assessment and plan all Dx Assessment and Plan for all problems:: will repeat CXR; saline lock; discussed warming the room with the nurse; continue with Levaquin <Ronn German - Last Filed: 09/26/20 08:46> Internal Medicine - PN: Subj *Date: 09/26/20 *Time: 08:46 Exam Vital signs and Labs for Last 24 Hours: Temp Pulse Resp BP Pulse Ox 97.9 F 64 16 150/89 H 97 09/26/20 08:00 09/26/20 08:00 09/26/20 08:00 09/26/20 08:00 09/26/20 08:00 Laboratory Results -
--- NOTE | 2020-09-26 08:32 | XR_ITS ---
PROCEDURE: XR CHEST PORTABLE CLINICAL HISTORY: f/u pneumonia Pneumonia follow-up COMPARISON: CR CXR CHEST(2 VIEWS-NOT PORTABLE) from 06/03/2016 CR CXR CHEST(2 VIEWS-NOT PORTABLE) from 09/29/2017 CR XR CHEST PORTABLE from 09/23/[address] ANGIO CHEST from 09/23/2020 FINDINGS: The cardiomediastinal silhouette and pulmonary vascularity are within normal limits. Infiltrate is present in the right upper lobe which is more prominent compared to 09/23/2020. Patchy infiltrate also present in the left upper lobe centrally. This is not significantly changed. No acute bony abnormalities. IMPRESSION: Right upper lobe pneumonia slightly worse. Left upper lobe pneumonia not significantly changed Dictated by: Percy Reynolds MD 09/26/2020 10:04 Percy Reynolds MD in [facility] 09/26/2020 10:04
[2020-09-26 12:00] VITALS: BP 128/64; PULSE 67; RESP 18; TEMP 36.6; O2SAT 94
[2020-09-26 16:00] VITALS: BP 101/50; PULSE 71; RESP 16; TEMP 36.6; O2SAT 93
--- NOTE | 2020-09-26 18:23 | PC.NURSE ---
Remains on room air. Lungs CTA. No cough noted. Denies SOA. Abdomen soft, non-tender w/ active BS all quads. No BM this shift. Denies N/V. Voiding w/o difficulty. Skin intact. No edema noted. Ambulates independently w/ no safety concerns. Has ate most of her trays this shift. No needs voiced to staff. Call montanez w/in reach.
[2020-09-26 20:00] VITALS: BP 119/71; PULSE 76; RESP 18; TEMP 36.6; O2SAT 91; O2SAT 92
[2020-09-27] VITALS: BP 125/65; PULSE 63; RESP 17; TEMP 36.6; O2SAT 92
--- NOTE | 2020-09-27 03:23 | PC.NURSE ---
Pt has rested well this shift. Pt is A&Ox4. Lung sounds remain clear, no cough noted. Pt did desat this shift in the upper 80's (87-89%). 1L NC applied to pt with favorable results. o2 sat is currently 93%. Active bowel sounds in all 4 quads. Pt continues to ambulate to bathroom independently. VSS. Call light within reach. No other complaints or acute changes. Will continue to monitor.
[2020-09-27 04:00] VITALS: BP 126/70; PULSE 59; RESP 17; TEMP 37.1; O2SAT 94
[2020-09-27 05:00] VITALS: BMI 34.3
[2020-09-27 05:49] LABS: Basophils % 0.4 % (0.1-2.0); Eosinophils % 0.3 % (0.1-12.0); Hematocrit 40.5 % (37.0-47.0); Hemoglobin 13.5 g/dL (12.2-16.2); Lymphocytes # 1.2 K/mm3 (0.7-4.5); Mean Corpuscular HGB Conc 33.4 g/dL (31.8-35.4); Mean Corpuscular Hemoglobin 29.9 pg (27.0-31.2); Mean Corpuscular Volume 89.6 fl (81-99); Mean Platelet Volume 10.2 fl (7.4-10.4); Monocytes # 0.5 K/mm3 (0.1-1.0); Monocytes % 10.1 % (1.7-9.3); Neutrophils # 3.2 K/mm3 (1.8-7.8); Neutrophils % 64.2 % (37.0-80.0); Platelet Count 173 K/mm3 (142-424); Red Blood Count 4.52 M/mm3 (4.20-5.40); Red Cell Distribution Width 13.1 % (11.5-17.5); White Blood Count 4.9 K/mm3 (4.8-10.8)
[2020-09-27 05:52] LABS: Chloride 108 mmol/L (98-107); Sodium 138 mmol/L (136-145)
[2020-09-27 05:55] LABS: Alanine Aminotransferase 70 U/L (12-78); Alkaline Phosphatase 92 U/L (38-126); Aspartate Amino Transferase 39 U/L (14-36); Bilirubin,Total 0.4 mg/dl (0.2-1.3); Blood Urea Nitrogen 14 mg/dl (7-17); Carbon Dioxide 26 mmol/L (22.0-30.0); Creatinine Clearance Estimated 84 mL/min (50-200); Estimated Glomerular Filt Rate 73 ml/min (>60); GFR (African American) 88 ML/MIN (>60)
[2020-09-27 05:56] LABS: Calcium 8.2 mg/dl (8.4-10.2); Glucose 84 mg/dl (74-100)
--- NOTE | 2020-09-27 06:57 | PC.NURSE ---
Pt on RA at this time. 02 sat=96%
[2020-09-27 08:00] VITALS: BP 109/70; PULSE 79; RESP 18; TEMP 36.8; O2SAT 94
--- NOTE | 2020-09-27 10:23 | SW/DCPLANNER ---
This patient is currently on 94% RA. This patient will NOT require home O2 at discharge. Patient will discharge today.
--- NOTE | 2020-09-28 12:23 | HMH.DCSUM ---
General - General Admission date:: 09/23/20 <Ronn German - 10/07/20 10:35> 09/23/20 <Irma Villagomez - 09/28/20 12:29> Discharge date: 09/27/20 <Irma Villagomez - 09/28/20 12:29> HPI HPI: Ms. Oliva is a 60-year-old female who is healthy and currently takes no regular medications. She presented to the [facility] emergency room after experiencing 6 days of diarrhea with 1-2 stools a day of watery brown stool. She states she was nauseated but never vomited. She did have some stomach cramping. She described a poor p.o. intake and felt dehydrated. She states she continued to void. She denies any respiratory symptoms. She did have some body aches which she associated with the diarrhea. The following is from ER documentation: She tested positive for COVID-19, had a test 1 week ago. Initially did not feel bad, but since has declined. She says that she has developed abdominal pain across her lower abdomen, diarrhea, severe nausea. The only thing she can take orally is popsicles. Very fatigued, feels dehydrated. She feels chilled, but no fevers when she takes it at home. No blood in her diarrhea. Denies cough or shortness of breath, but says she has a pain in her posterior thoracic area when she takes in a breath. She states everyone in her workplace has Covid. With evaluation in the emergency room. CBC with a White count at 3300 with a hemoglobin of 17 hematocrit of 50.8. Electrolytes showed a sodium of 134 and potassium of 4; kidney function was normal. Liver function studies were slightly elevated on admission with AST at 57 and with repeat this a.m. at 315 with ALT at 288 and alkaline phosphatase of 253. Covid IgG was positive Covid IgM was negative; blood culture results are pending. Chest x-ray revealed bilateral infiltrates seen on CT of the chest. CT of the abdomen and pelvis reveals liquid stool throughout the right and transverse colon suggesting developing diarrhea as well as increased flow throughout the distal small bowel with some small bowel loops Possibly reflecting enterocolitis. She was thus admitted to the Covid unit and placed on Covid orders. <Irma Villagomez - 09/28/20 12:29> Hospital Course Hospital Course: The patient stated she felt much better after receiving IV fluids. She had no diarrhea. She was voiding without difficulty. She denied chest pain and shortness of breath. She was started on routine Covid medications to include ascorbic acid, dexamethasone, Lovenox, vitamin D, Pepcid, and remdesivir as well as Levaquin for her pneumonia. Her liver studies were elevated initially and these were followed. Her liver functions improved as did her abdominal cramping. She was weaned off of her oxygen. She was able to ambulate around her room. Her blood cultures returned positive for Staph hominis. Repeat chest x-ray was ordered and it showed a right upper lobe pneumonia which was slightly worst and a left upper lobe pneumonia which was not significantly changed.The patient's oxygen normalized and she no longer felt short of breath. She denied a cough and her diarrhea resolved. She had been afebrile and was anxious to go home. Her stool panel was negative. She was stable to be discharged home. <Irma Villagomez - 10/01/20 13:33> Objective Vital signs: Temp Pulse Resp BP Pulse Ox 98.2 F 79 18 109/70 L 94 L 09/27/20 08:00 09/27/20 08:00 09/27/20 08:00 09/27/20 08:00 09/27/20 08:00 <Ronn German - 10/07/20 10:35> Temp Pulse Resp BP Pulse Ox 98.2 F 79 18 109/70 L 94 L 09/27/20 08:00 09/27/20 08:00 09/27/20 08:00 09/27/20 08:00 09/27/20 08:00 <Irma Vilalgomez - 09/28/20 12:29> Narrative: - Constitutional no acute distress Comments: Sitting on the bedside and appears comfortable with many blankets wrapped around her - *Routine Respiratory Exam Present: CTA bilaterally (Anteriorly and posteriorly)
--- NOTE | 2020-09-28 13:41 | HMH.ACPN2 ---
Internal Medicine - PN: Subj *Date: 09/27/20 *Time: 08:41 Interval history: She slept well last night. O2 sats dropped to 88% on room air. During the day her sats are normal ranging 92 to 98%. She does not feel short of breath. She denies cough. Diarrhea has resolved. No abdominal pain. She has been afebrile. She is eager to go home. Exam Vital signs and Labs for Last 24 Hours: Temp Pulse Resp BP Pulse Ox 98.2 F 79 18 109/70 L 94 L 09/27/20 08:00 09/27/20 08:00 09/27/20 08:00 09/27/20 08:00 09/27/20 08:00 Laboratory Results - last 24 hr 09/25/20 10:40: Stl Aeromonas (PCR) Not detected, Stl C. cayetanensis PCR Not detected, Stool Rotavirus (PCR) Not detected, Stl Adenov F 40/41 PCR Not detected, Stool Astrovirus (PCR) Not detected, Stool Campylobacter PCR Not detected, Stl C.difficile Tox PCR Not detected, Stool Cryptosporidium PCR Not detected, Stl E.coli Shiga Tox PCR Not detected, Stool E coli O157 PCR Not detected, Stl Enterotoxigenic E PCR Not detected, Stool EPEC (PCR) Not detected, Stool EAEC (PCR) Not detected, Stl E. histolytica PCR Not detected, Stool Giardia Lamblia PCR Not detected, Stool Salmonella PCR Not detected, Stool Sapovirus (PCR) Not detected, Stl P. shigelloides PCR Not detected, Stl Shigella/EIEC PCR Not detected, St Y.enterocolitica PCR Not detected, Stool Vibrio (PCR) Not detected, Stl Vibrio cholerae PCR Not detected, Stl Norovirus GI/GII PCR Not detected I & O for Last 24 hours: Intake & Output 09/26/20 09/27/20 09/28/20 09/29/20 11:59 11:59 11:59 11:59 Intake Total 3990 / 3990 940 / 940 Output Total 2350 / 2350 2400 / 2400 Balance 1640 / 1640 -1460 / -1460 Weight 199 lb 3.99 oz 201 lb 3.99 oz Microbiology Reports for the Last 24 Hours: Microbiology 09/23/20 12:36 Blood Blood Culture - Final NO GROWTH AFTER 5 DAYS Narrative: She is sitting in the chair at the bedside. Color is normal. No respiratory distress. Lungs are clear to auscultation. Heart is regular. Abdomen is soft and nondistended with no tenderness. Assessment and Plan (1) Diarrhea Status: Acute Qualifiers: Diarrhea type: presumed infectious Qualified Code(s): R19.7 - Diarrhea, unspecified Category: Medical Code(s): R19.7 - Diarrhea, unspecified (2) Pneumonia due to COVID-19 virus Status: Acute Category: Medical Code(s): U07.1 - COVID-19; J12.89 - Other viral pneumonia (3) Transaminitis Status: Acute Category: Medical Code(s): R74.01 - Elevation of levels of liver transaminase levels - Assessment and plan all Dx Assessment and Plan for all problems:: Stable for discharge after she gets he last dose of Remdesivir today. SHe is to remain off work as per [facility] recommendations. Telehealth f/u in 4-5 days.
== END 2020-09-27 11:10 | disposition home or self-care (01) | DRG 177 ==
LOC: ER 12:45 → ICU 14:11
PROVIDERS: Admitting Provider Family Medicine; Emergency Provider Emergency Medicine; PCP Family Medicine; Visit Provider Family Medicine
DX: U07.1 COVID-19 (principal); J12.89 Other viral pneumonia; R78.81 Bacteremia; R19.7 Diarrhea, unspecified; Z87.891 Personal history of nicotine dependence
CPT/HCPCS: 71045; 71275; 74177; 80053; 83605; 83690; 85025; 86328; 87040; 87077; 87186; 87506; 96365; 96367; 96375; 96376; 99284; J1956; J2405; Q9967

== ENCOUNTER 2020-10-20 12:33 | Emergency (ER) | payer BC, SELFPAY ==
--- NOTE | 2020-10-20 12:41 | XR_ITS ---
PROCEDURE: XR WRIST RT MIN 3V CLINICAL INDICATION: fall COMPARISON: No exams were available for comparison FINDINGS: All the carpal bones appear intact with no definite fracture seen. There is a mildly sclerotic appearing trapezium bone suggesting possibly mild avascular necrosis. The soft tissues are normal. IMPRESSION: No acute findings. Dictated by: Dr. Robert Puga MD 10/20/2020 14:03 Dr. Robert Puga MD in [facility] 10/20/2020 14:03
--- NOTE | 2020-10-20 12:41 | XR_ITS ---
PROCEDURE: XR HAND RT MIN 3V CLINICAL INDICATION: fall COMPARISON: No exams were available for comparison FINDINGS: No fracture or dislocation. No lytic or blastic change. There is normal mineralization. The joint spaces are well-preserved. No significant degenerative/arthritic changes. No erosive changes evident. Other findings:None. IMPRESSION: No acute findings. Dictated by: Dr. Robert Puga MD 10/20/2020 14:03 Dr. Robert Puga MD in [place] 10/20/2020 14:03
[2020-10-20 12:42] VITALS: BP 140/78; PULSE 84; RESP 17; TEMP 36.9; O2SAT 99; BMI 35.4
--- NOTE | 2020-10-20 12:46 | HMH.EDUTC ---
[facility] Disposition Clinical Impression: Wrist sprain Qualifiers: Encounter type: initial encounter Laterality: right Qualified Code(s): S63.501A - Unspecified sprain of right wrist, initial encounter Disposition: Home, Self-Care Condition on Discharge: Good Instructions: Wrist Sprain, DI for Wrist Sprain, How To Perform RICE (Rest, Ice, Compress, Elevate) Additional Instructions: *RICE, Rest the extremity, Ice 15-20 minutes 3-4 times daily, Compress- wear the aniceto wrap as discussed as much as possible to help reduce swelling and pain, Elevate the extremity when at rest *Aniceto wrap is for support and help control swelling, use it except in the shower. Be sure that is not to tight but not to loose either *Elevate when resting *Ibuprofen every 6-8 hours as needed for pain an inflammation. If need something more can take Tylenol in between doses of Ibuprofen to help Immediately follow up with your family doctor for new or worsening of symptoms, or no noticeable improvement over the next 3-5 days You can call back to the [facility] later this evening or tomorrow to get the official Radiology reading of your xray Follow up with your Family Doctor if needed Follow up with Orthopedics if needed Return if needed Straight to ER If any life threatening symptoms Referrals: Ronn German MD [Primary Care Provider] - As needed Rolo Sauer MD [Staff Physician] - Time of Disposition: 13:00 Medical Decision Making - Gilson Inquiry Pt receiving controlled substance: No Gilson was queried for this patient: No Vital Signs: 10/20/20 12:42 10/20/20 13:13 Temperature 98.4 F 98.4 F Temperature Source Oral Oral Pulse Rate 84 Pulse Rate [Radial] 84 Respiratory Rate 17 17 Blood Pressure 140/78 Blood Pressure [Right Arm] 140/78 Blood Pressure Mean [Right Arm] 98 Blood Pressure Source Automatic Cuff Blood Pressure Source [Right Arm] Automatic Cuff Blood Pressure Position Sitting Blood Pressure Position [Right Arm] Sitting 02 Sat by Pulse Oximetry 99 Oxygen Delivery Method Room Air Room Air - Radiology Data #1 Image(s): Hand Image Reviewed: Yes I reviewed the patient's radiology image Preliminary Findings: No Fracture Seen #2 Image(s): Wrist Image Reviewed: Yes I reviewed the patient's radiology image Preliminary Findings: No Fracture Seen Will place in Velcro wrist splint and have patient call back for official reading of xray [facility] HPI - General Stated complaint: ao 10/20 @ 0900 fell injury R hand Time Seen by Provider: 10/20/20 12:46 Mode of Arrival: Ambulatory Source of Information: Patient Limitations: No Limitations Description of Symptoms (Recalled from Triage Doc. by RN): fell in the garage this morning and injured her right hand and wrist. HEENT Symptoms (Recalled from RN notes): No Resp Symptoms (Recalled from RN notes): No Skin Symptoms (Recalled from RN notes): No MS Symptoms (Recalled from RN notes): Yes Functional Status (Recalled from RN notes): wnl - History of Present Illness Provider Complaint: Patient state that she tripped over something on the ground at home and fell States that she stuck out her hand to catch her fall and imediately started having pain in her right wrist and hand and pain is worse when she moves it States that when the pain hits it shoots from her hand into her wrist. Denies LOC and denies any other injury - Related Data Home Medications Medication Instructions Recorded Confirmed No Known Home Medications 09/23/20 09/23/20 Allergies Allergy/AdvReac Type Severity Reaction Status Date / Time No Known Allergies Allergy Verified 09/16/20 12:03 - Worker's Comp Is this a Worker's Comp case?: No [facility] History - Hepatitis A Screen Drug use history?: No High risk sexual behaviors?: No History of sexually transmitted infection?: No Currently employed?: No Childcare worker?: No Do you have indoor plumbing?: Yes Do you have electricity?: Yes At
[2020-10-20 13:13] VITALS: BP 140/78; PULSE 84; RESP 17; TEMP 36.9; O2SAT 99
== END 2020-10-20 13:14 | disposition home or self-care (01) ==
PROVIDERS: Emergency Provider Nurse Practitioner; PCP Family Medicine
DX: S63.501A Unspecified sprain of right wrist, initial encounter (principal); W01.0XXA Fall on same level from slipping, tripping and stumbling without subsequent striking against object, initial encounter; Y92.015 Private garage of single-family (private) house as the place of occurrence of the external cause
CPT/HCPCS: 29125; 73110; 73130; 99201

== ENCOUNTER 2022-09-14 09:56 | Emergency (ER) | payer BC, SELFPAY ==
[2022-09-14 10:03] VITALS: BP 102/64; PULSE 92; RESP 17; TEMP 36.8; O2SAT 96; BMI 37.0
--- NOTE | 2022-09-14 11:20 | EXP.UTC ---
Discharge Plan Disposition Patient Disposition: Home, Self-Care Condition: Good Prescriptions Prescriptions: New azithromycin [Zithromax] 250 mg tablet 250 mg PO UD DOSE PK Qty: 6 0RF Rx Instructions: Take two (2) tablets today, then one (1) tablet days #2 thru #5 benzonatate [benzonatate] 100 mg capsule 100 mg PO TIDP PRN (Reason: Cough) Qty: 30 0RF methylprednisolone 4 mg Tablets,Dose Pack 4 mg PO DIRECTED Qty: 21 0RF No Action celecoxib 200 mg capsule 200 mg PO DAILY Qty: 90 1RF oxybutynin chloride 5 mg tablet extended release 24hr 5 mg PO DAILY Qty: 90 1RF Spiriva with HandiHaler 18 mcg capsule, w/inhalation device 1 cap inhalation DAILY Qty: 1 5RF Rx Instructions: puncture 1 cap using device; one dose = 2 inhalations Referrals Follow up/Referrals: Ronn German MD [Primary Care Provider] - See instructions Activity Restrictions/Add. Instructions Additional Instructions/Restrictions: Drink plenty of fluids. Take tylenol or ibuprofen for pain or fever. Take the medications as directed. Follow up with your regular doctor. GO TO THE ER FOR ANY WORSENING SYMPTOMS Don't start the oral steroids until tomorrow, since you had the shot here today. Clinical Impressions Clinical Impression: Bronchitis, Viral syndrome Instructions Patient Instructions: DI for Acute Bronchitis Discharge ED Provider: Nick Crews [place] HPI General Stated complaint: Congestion Mode of Arrival: Ambulatory Time Seen by Provider: 09/14/22 11:20 Description of Symptoms (Recalled from Triage Doc. by RN): PT REPORTS 3 DAYS OF CHEST CONGESTION, PRODUCTIVE COUGH, CHILLS AND HEADACHE History of Present Illness Provider Complaint: She c/o 2 days of fever, chills, body aches and chest congestion. She does get pneumonia kind of frequently. Related Data Previous Rx's Medication Instructions Recorded celecoxib 200 mg capsule 200 mg PO DAILY #90 caps 09/03/22 oxybutynin chloride 5 mg 5 mg PO DAILY #90 tabs 09/03/22 tablet,extended release 24 hr tiotropium bromide 18 mcg capsule 1 cap inhalation DAILY #1 puff 09/03/22 with inhalation device (Spiriva with HandiHaler) azithromycin 250 mg tablet 250 mg PO UD DOSE PK #6 tabs 09/14/22 (Zithromax) benzonatate 100 mg capsule 100 mg PO TIDP PRN Cough #30 caps 09/14/22 methylprednisolone 4 mg tablets in 4 mg PO DIRECTED #21 tabs 09/14/22 a dose pack Allergies Allergy/AdvReac Type Severity Reaction Status Date / Time No Known Allergies Allergy Verified 09/14/22 11:46 PFSH PFSH Medical History COPD (chronic obstructive pulmonary disease) OAB (overactive bladder) Osteoarthritis of right knee Personal history of smoking Surgical History History of cholecystectomy History of hysterectomy Family History Other Cancer Heart attack Hypertension Social History Smoking Status: Never smoker alcohol intake: never current occupational status: employed and other Travel in the last 8 weeks: Inside the [place] household members: spouse housing: house current occupation: [employer], [employer] current occupational exposures/hazards: No ROS Obtained: Yes All systems reviewed & no additional complaints except as documented Constitutional Constitutional: Reports chills and Reports fever(s) Eyes Eyes: Denies eye discharge ENT Ears, Nose, Mouth, and Throat: Reports as per HPI Cardiovascular Cardiovascular: Denies chest pain Respiratory Respiratory: Denies shortness of breath, Reports chest congestion, Reports cough, Denies stridor and Denies wheezing Gastrointestinal Gastrointestingal: Reports nausea; Denies abdominal pain, constipation, cramping, diarrhea or vomiting Musculoskeletal Musculoskeletal: Denies arthralgias I
--- NOTE | 2022-09-14 11:25 | XR_ITS ---
PROCEDURE INFORMATION: Exam: XR Chest Exam date and time: 09/14/2022 12:40 PM Age: 62 years old Clinical indication: Cough TECHNIQUE: Imaging protocol: Radiologic exam of the chest. Views: 2 views. COMPARISON: CR XR CHEST PORTABLE 09/26/2020 9:37 AM FINDINGS: Lungs: Unremarkable. No consolidation. Pleural spaces: Unremarkable. No pleural effusion. No pneumothorax. Heart/Mediastinum: Unremarkable. No cardiomegaly. Bones/joints: Unremarkable. IMPRESSION: Normal chest.
[2022-09-14 11:44] VITALS: BP 125/68; PULSE 100; RESP 17; TEMP 36.8; O2SAT 97; BMI 38.4
[2022-09-14 12:47] LABS: UTC Influenza A Antigen Negative (Negative); UTC Strep Screen (Rapid) Negative (Negative)
[2022-09-14 12:48] LABS: UTC Influenza B Antigen Negative (Negative)
[2022-09-14 13:37] VITALS: BP 125/68; PULSE 100; RESP 17; TEMP 36.8
== END 2022-09-14 13:41 | disposition home or self-care (01) ==
PROVIDERS: Emergency Provider Nurse Practitioner Family; PCP Family Medicine
DX: J40 Bronchitis, not specified as acute or chronic (principal); N32.81 Overactive bladder; B34.9 Viral infection, unspecified; R51.9 Headache, unspecified; M17.11 Unilateral primary osteoarthritis, right knee; Z79.52 Long term (current) use of systemic steroids; Z79.899 Other long term (current) drug therapy; Z87.01 Personal history of pneumonia (recurrent); Z87.891 Personal history of nicotine dependence; Z82.49 Family history of ischemic heart disease and other diseases of the circulatory system; Z80.9 Family history of malignant neoplasm, unspecified
CPT/HCPCS: 71046; 87804; 87880; 99213; G0463; J0696

== ENCOUNTER 2025-10-13 15:42 | Observation (INO) | payer MEDICARE, SELFPAY ==
--- OUTSIDE RECORDS SUMMARY | 2025-08-21 07:25 | XMS_ITS | Encounter Summary ---
Author Organization [facility] [place] [address] Care Team Providers Care Residential Appliance Repair Technician Name Role Phone Unavailable Primary Care Provider Unavailabl e Reason for Visit * Auth/Cert/Inpt Specialty Diagnoses / Procedures Referred By Sultana mcdonnell Referred To Contact Diagnoses Combined forms of age-related cataract of left eye Combined forms of age-related cataract of left eye [H25.812] Procedures OR XCAPSL CTRC RMVL INSJ IO LENS PROSTH W/O ECP LEFT EYE CATARACT EXTRACTION WITH PHACOEMULSIFICATION AND INTRAOCULAR LENS Referral ID Status Reason Start Date Expiration Date Visits Re quested Visits Authorized [id number] 1 1 Encounter Details Date Type Department Care Team (Latest Contact Info) Description 08/21/2025 8:25 AM EDT - 08/21/2025 10:56 AM EDT [place] [address] Sree Colon MD [address] [place], [place] [id number] Discharge Disposition: Home or Self Care Social History Tobacco Use Types Packs/Day Years Used Date Smoking Tobacco: Former Cigarettes Passive Smoke Exposure: Past Smokeless Tobacco: Never Alcohol Use Standard Drinks/Week Comments Not Currently 0 (1 standard drink = 0.6 oz pur e alcohol) Comments No Sex and Gender Information Value Date Recorded Sex Assigned at Not on file Legal Sex Female 6:12 AM EDT Gender Identity Not on file Sexual Orientation Not on file documented as of this encounter Last Filed Vital Signs Vital Sign Reading Time Taken Comments Blood Pressure 153/93 08/21/2025 10:52 AM EDT Pulse 63 08/21/2025 10:52 AM EDT Temperature 36.7 C (98.1 F) 08/21/2025 10:52 AM EDT Respiratory Rate 18 08/21/2025 10:52 AM EDT Oxygen Saturation 99% 08/21/2025 10:52 AM EDT Inhaled Oxygen Concentration - - Weight 97 kg (213 lb 14.4 oz) 08/21/2025 8:59 AM EDT Height 157.5 cm (5' 2 ) 08/21/2025 8:59 AM EDT Body Mass Index 39.12 08/21/2025 8:59 AM EDT documented in this encounter Discharge Instructions * Discharge Instructions* Sree Colon MD - 07/25/2025 12:41 PM EDT Images from the original note were not included. +++++++++++++++++++++++++++++++++++++++++++++++++++++++++++++++++++ [facility] Discharge Instructions - Following Anesthesia We appreciate the opportunity to care for you today! Here are a few reminders as you head home: A responsible adult, 18 years or older must be in attendance until tomorrow morning. Rest quietly today. May resume usual diet as tolerated or as directed by your surgeon. Do not drive or operate any machinery until tomorrow morning or as instructed. Do not make any legal or important decisions for the next 24 hours. Do not drink alcoholic beverages or take sleeping pills for 24 hours unless otherwise directed. If you have questions or concerns regarding your anesthesia experience, please call our office at . Get Well Soon! [facility] +++++++++++++++++++++++++++++++++++++++++++++++++++++++++++++++++++ [facility] Home Care Instructions Originated: Revised: 04/12/12 Medical Record File No. SURG C-[id number] Form No.: [id number] [facility] Best wishes are extended to you on behalf of [facility] as you are discharged. We hope you are pleased with your outpatient care and services. Because we are most concerned with your health, we suggest that you carefully read the following instructions. HOME CARE INSTRUCTIONS FOLLOWING EYE SURGERY WITH DR. COLON A responsible adult, 18 years or older must be in attendance for 24 hours following discharge. Rest quietly today. Start with liquids first. If no nausea, proceed with a light meal. Drink at least 6 glasses of fluid after surgery. Do not drive or operate heavy machinery for 24 hours or as directed. No alcoholic beverages for 24 hours post op. Do not make any legal or important decisions for the next 24 hours. Check your temperature over the next five days and call your physician if greater than 101.0 F. Notify your physician if you have rash, hives, difficulty breathing, or severe nausea or vomiting. Contact your family physician for questions concerning your current home medications. If pain intensifies or pain is unrelieved with pain medication as ordered, call your physician -- If physician is unavailable, go to the Emergency Room. ADDITIONAL INSTRUCTIONS The post op drops are VERY IMPORTANT. Use them as directed on your drop schedule. Always bring your post-op bag, drops and instruction sheet to all of your visits. Tape your protective shield over your eye at bedtime or naptime for one week to prevent accidentally rubbing or bumping your eye. If you have a shield on the eye, it is to remain on until you see your doctor except for temporarily opening to place eyedrops if you are told to do so. Keep the area around your eye clean with a clean face cloth moistened with warm water. Keep soap, lotion, shampoo, hairspray make-up, etc. away from your eye for 7 days. Do not wash your hair for 24 hours. Do not rub your eye. This is the worse thing you can do while healing. No heavy lifting, bending, or straining for one week after surgery. You should have no severe pain after surgery. Your eye may feel irritated or scratchy. You may takeTylenol (acetaminophen) for discomfort as needed as long as you do not have any liver problems. If pain becomes severe, call the doctor???s office immediately. Your eye may be red or bloodshot. This will gradually lessen as your eye heals. CALL THE OFFICE IMMEDIATELY IF YOU EXPERIENCE ANY OF THE FOLLOWING: Sudden decrease in vision, severe pain, shower of floaters, flashes of light, veil-like curtain across your eye Post- operative visit: Follow up as scheduled in the next day with Dr. Colon or his associate DR. COLON'S PHONE NUMBER: or or Toll Free [phone] THERE IS AN EYE PHYSICIAN PRACTICING UROLOGIST 24 HOURS A DAY, SEVEN DAYS A WEEK--CALL FOR ANY QUESTIONS/PROBLEMS Medications prior to admission have been reviewed. Please continue medications as ordered on Current Medication Record when discharged unless otherwise noted. Anticoagulation therapy medications: Mayrestart anticoagulants on the day of surgery as directed by your primary care physician. Please continue medications only as directed by your primary care and specialist physicians. The medications on your medication reconciliation form are simply the medications you reported you were taking at thetime of this admission. We are simply asking you to resume the outpatient medications that you reported to us when you presented for your procedure. Please make sure you check with the physician(s) who prescribed your medications today when you leave the hospital to be sure you are taking the correct medications and dosages. Patient and/or responsible republican verbalizes understanding of above instructions Surgery home care instructions Dr. Colon- Page [phone] of [phone] documented in this encounter Medications at Time of Discharge ibuprofen (ADVIL;MOTRIN) 200 mg Oral Tablet Take 200 mg by mouth every 8 hours as needed for Pain. documented as of this encounter Discharge Disposition Disposition Code Departure Means Destination Comment s Home or Self Long-Term documented in this encounter Progress Notes * Christy Borrego RN - 08/21/2025 10:56 AM EDT DC education completed with patient and family. No further questions at this time. PIV removed withno complications. Family to transport home. documented in this encounter Procedure Notes * Sree Colon MD - 08/21/2025 10:38 AM EDT [facility] Procedure Note Name: Elva Oliva : 1960 Age: 65 y.o. Date of Procedure: 08/21/25 Preoperative diagnosis: Cataract left eye Postoperative diagnosis: Same Procedure: Phacoemulsification with posterior chamber intraocular lens insertion left eye. Surgeon: Sree Colon M.D. Reel Slitter: Chaya Hernandez M.D. Anesthesia: MAC with Topical Complications:None Implant: [id number] +27.5 [id number] Estimated Blood Loss: < 3cc Specimens removed: none Indications for procedure: The patient has a visually significant cataract in the eye that interferes with activities of dailyliving. The patient desires to improve their vision and following discussion of all risks, benefits, and alternatives, the patient agreed to have the procedure done. Informed consent was signed. Operative Procedure: The patient was taken to the holding area where the operative site was confirmed. Topical anesthetic and dilating medications were placed in the operative eye. The patient was brought to the operating room and placed in the supine position. The operative eye was prepped and draped in the usual sterile fashion for ophthalmic surgery. A timeout was performed. A lid speculum was introduced. A paracentesis was made for the left hand with a miniblade. Shugarcaine was injected into the anterior chamber. The anterior chamber was deepened with Viscoat. A 2.4 mm keratome was used to make a beveled temporal clear corneal incision. A cystotome and Utrada forceps were used to make a continuous curvilinear capsulorhexis. Balanced Salt Solution was used to hydrodissect the nucleus and rotation of the lens was performed. The phacoemulsification handpiece and chopper were used to groove, crack, and remove the nucleus with a total phacoemulsification power of 6.27 CDE. Cortical material was aspirated using the irrigation and aspiration handpiece. The posterior capsule was polished as needed with the irrigation aspiration handpiece. The capsular bag was deepened with Provisc and the wound was expanded for a C cartridge. Next the lens was injected into the capsular bag. The lens was rotated until well positioned. The remaining viscoelastic was aspirated with the irrigation and aspiration handpiece. Intracameralantibiotics were injected. The wounds were hydrated and found to be watertight. Glaucoma drops and betadine were applied if indicated. The patient was given a clear shield to tapeover the eye. The patient tolerated the procedure well and was transferred to the recovery room in stable condition. Sree Colon M.D. documented in this encounter Nursing Notes * Sunita Braden RN - 08/21/2025 10:21 AM EDT Lens verified prior to procedure with Dr Colon * Joy Johnson RN - 07/25/2025 10:40 AM EDT Database completed and pre procedure instructions provided. Questions encouraged and addressed. Patient repeated and verified an understanding of pre procedure instructions. * Joy Johnson RN - 07/25/2025 10:40 AM EDT Images from the original note were not included. PREPARING FOR YOUR SURGERY Date of Surgery: 08/07/2025 and 08/21/2025 Arrival time: Your surgeon may have already provided this, check your paperwork from the office. Ifnot received, call your surgeon's office. Location: [facility] Medications Take the following medications on the morning of surgery: NONE Medications on the Day of Surgery: Verify with your doctor for possibly discontinuing the following medications: blood thinners, aspirin, or anti-inflammatories. Stop taking all supplements 7 days prior to your surgery. Food, Drinks, Tobacco Do not eat any food after midnight. This includes gum, mints, candy, chewing tobacco, and dip. Unless otherwise instructed by your surgeon, you may consume water, Gatorade, Powerade, black coffee/tea(no milk, no cream/creamers, no sugar). Finish these liquids 2 hours prior to your scheduled arrival time. No exceptions or substitutions to these restrictions. Do not smoke, vape, or use any type of tobacco or marijuana products within 24 hours prior to surgery. Smoking will also slow your rate of healing. It is advised that you do not smoke during the healing process. No alcohol 24 hours prior to surgery. Traveling Sales Executive It is important to have a Traveling Sales Executive, someone who is 18 years or older, to accompany you and remain in the facility for the duration of your surgery. This person should be available for the Perioperative Team, which includes your surgeon, to communicate with before, during and after your surgery. Because you are receiving anesthesia, someone is needed to drive you home and remain with you for at least 24 hours after surgery to make sure you are safe during that time. We also recommend that no children be present on the day of surgery. If you have a concern, please reach out to our department [phone]. Hygiene Reserve your teeth and gargle the morning of surgery. Shower the morning of surgery or the night before. Do not wear makeup (including eye makeup) lotion, powder, deodorant, perfume, or cologne. Remove nail moroccan prior to surgery. This includes artificial nails and gel nail moroccan. Personal Items Wear clean, simple, loose-fitting clothing (no jeans) and sturdy shoes (no flip flops or slides) [facility]. If having cataract surgery - it is recommended to wear a short sleeve button - down top to the hospital or surgery center. Do not bring valuables with you. Remove all jewelry prior to surgery to prevent injury. We will not tape wedding rings/bands. If you have dentures, they may need to be removed before going into the operating room. We will have a case for them. Glasses and contacts will need to be removed prior to surgery. Please bring a case for them. Bring with You Bring a copy of your Living Will and/or Durable Power of Sales Representative [employer]. Notify the Surgeon Notify your surgeon if you develop any illness (fever, cold, cough, sore throat, nausea, vomiting, skin rashes etc.) between now and surgery time. Notify your surgeon and Pre-admission testing ([phone]) if you have any changes in your healthconditions or if any new medications are ordered between now and surgery. Questions or Concerns? If you have any questions or concerns, feel free to call the Pre-Admission testing department at [phone]. We want to make sure you feel safe and have an excellent experience while you are here. Do not reply to this message through [employer] as it may not be answered promptly. [facility] at [phone] - [address] [place] [address]. DOORS OPEN AT 6:30 AM Surgical Site Infections FAQs What is a Surgical Site Infection (SSI)? A surgical site infection is an infection that occurs after surgery in the part of the body where the surgery took place. Most patients who have surgery do not develop an infection. However, infections develop in about 1 to 3 out of every 100 patients who have surgery. Some of the common symptoms of a surgical site infection are: Redness and pain around the area where you had surgery Drainage of cloudy fluid from your surgical wound. Fever Can SSIs be treated? Yes. Most surgical site infections can be treated with antibiotics. The antibiotic given to you depends on the bacteria (germs) causing the infection. Sometimes patients with SSIs also need another surgery to treat the infection. What are some of the things that hospitals are doing to prevent SSIs? To prevent SSIs, doctors, nurses, and other healthcare providers: Clean their hands and arms up to their elbows with an antiseptic agent just before the surgery. Clean their hands with soap and water or an alcohol-based hand rub before and after caring for eachpatient. May remove some of your hair immediately before your surgery using electric clippers if the hair isin the same area where the procedure will occur. They should not shave you with a razor. Wear special hair covers, masks, gowns, and gloves during surgery to keep the surgery area clean. Give you antibiotics before your surgery starts. In most cases, you should get antibiotics within 60 minutes before the surgery starts and the antibiotics should be stopped within 24 hours after surgery. Clean the skin at the site of your surgery with a special soap that kills germs. What can I do to help prevent SSIs? Before your surgery: Tell your doctor about other medical problems you may have. Health problems such as allergies, diabetes, and obesity could affect your surgery and your treatment. Quit smoking. Patients who smoke get more infections. Talk to your doctor about how you can quit before your surgery. Do not shave near where you will have surgery. Shaving with a razor can irritate your skin and makeit easier to develop an infection. At the time of your surgery: Speak up if someone tries to shave you with a razor before surgery. Ask why you need to be shaved and talk with your surgeon if you have any concerns. Ask if you will get antibiotics before surgery. After your surgery: Make sure that your healthcare providers clean their hands before examining you, either with soap and water or an alcohol-based hand rub. If you do not see your providers clean their hands, please ask them to do so. Family and friends who visit you should not touch the surgical wound or dressings. Family and friends should clean their hands with soap and water or an alcohol- based hand rub beforeand after visiting you. If you do not see them clean their hands, ask them to clean their hands. What do I need to do when I go home from the hospital? Before you go home, your doctor or nurse should explain everything you need to know about taking care of your wound. Make sure you understand how to care for your wound before you leave the hospital. Always clean your hands before and after caring for your wound. Before you go home, make sure you know who to contact if you have questions or problems after you get home. If you have any symptoms of an infection, such as redness and pain at the surgery site, drainage, or fever, call your doctor immediately. If you have additional questions, please ask your doctor or nurse. Developed and co-sponsored by The Society for Healthcare Epidemiology of [place] (PAZ); InfectiousDiseases Society of [place] (IDSA); [employer]; Association for Professionals inInfection Control and Epidemiology (APIC); Centers for Disease Control and Prevention (CDC); and The Joint Commission. This information is not intended to replace advice given to you by your health care provider. Make sure you discuss any questions you have with your health care provider. , ANESTHESIA - COMMON SIDE EFFECTS (if present, these should resolve within 24 hours) TIREDNESS SHIVERING DIZZINESS DRY MOUTH MILD NAUSEA/VOMITING SORE THROAT OR HOARSENESS MILD PAIN OR DISCOMFORT IS NORMAL CALL THE SURGEON DAY OR NIGHT You have nausea or vomiting that doesn???t go away by the next morning. You experience severe pain not relieved by suggested medications. Thank you for letting us care for you. documented in this encounter Plan of Treatment Not on file documented as of this encounter Procedures Procedure Name Priority Date/Time Associated Diagnosis Comments OR XCAPSL CTRC RMVL INSJ IO LENS PROSTH W/O ECP 08/21/2025 10:11 AM EDT Combined forms of age-related cataract of left eye Special Needs TOPICAL/MAC documented in this encounter Visit Diagnoses Not on filedocumented in this encounter Administered Medications Inactive Administered Medications - up to 1 most recent administrations Medication Order MAR Action Action Date Dose Rate Site phenylephrine (MYDFRIN) 2.5 % ophthalmic solution 1 Drop 1 Drop, Ophthalmic, PREPROCEDURE, 3 doses, Starting on Thu08/21/25 at 0906, Until Thu08/21/25 at 0930, Irritation, PREPROCEDURE, Administer one drop EVERY 5 MINUTES x 3 to operative eye, Pre-op (Holding/SDS Meds) Given 08/21/2025 9:30 AM EDT 1 Drop Left Eye phenylephrine (MYDFRIN) 2.5 % ophthalmic solution 1 Drop 1 Drop, Ophthalmic, PREPROCEDURE, 1 dose, Starting on Thu08/21/25 at 0906, Until Thu08/21/25 at 1502, Irritation, Pre-op dilation, Assess operative eye 15 minutes after second dose of eye gel. If eye is not dilating, give Mydriacyl 1% one drop to operative eye and Neosynephrine 2.5% one drop to operative eye. May repeat x 1 PRN, Pre-op (Holding/SDS Meds) proparacaine (ALCAINE) 0.5 % ophthalmic solution 1 Drop 1 Drop, Ophthalmic, PREPROCEDURE, 1 dose, Starting on Thu08/21/25 at 0906, Until Thu08/21/25 at 1502, Pain, PREPROCEDURE, One drop to the operative eye immediately prior to taking patient to [facility] for Toric IOL., Pre-op (Holding/SDS Meds) tropicamide (MYDRIACYL) 1 % ophthalmic solution 1 Drop 1 Drop, Ophthalmic, PREPROCEDURE, 3 doses, Starting on Thu08/21/25 at 0906, Until Thu08/21/25 at 0929, PREPROCEDURE, Administer 1 drop EVERY 5 MINUTES x 3 to operative eye, Pre-op (Holding/SDS Meds) Given 08/21/2025 9:29 AM EDT 1 Drop Left Eye tropicamide (MYDRIACYL) 1 % ophthalmic solution 1 Drop 1 Drop, Ophthalmic, PREPROCEDURE, 1 dose, Starting on Thu08/21/25 at 0906, Until Thu08/21/25 at 1502, Pre-op dilation, Assess operative eye 15 minutes after second dose of eye gel. If eye is not dilating, give Mydriacyl 1% one drop to operative eye and Neosynephrine 2.5% one drop to operative eye. May repeat x 1 PRN, Pre-op (Holding/SDS Meds) documented in this encounter Historical Medications * This list may reflect changes made after this encounter. ibuprofen (ADVIL;MOTRIN) 200 mg Oral Tablet Take 200 mg by mouth every 8 hours as needed for Pain. added in this encounter Active and Recently Administered Medications Times are shown in EDT. Scheduled Medication Order 08/19/2025 08/20/2025 08/21/2025 cefUROXime 10 mg/mL in sodium chloride 0.9% 1 mL intracameral syringe (COMPLETED) 1 mL, Injection, ONCE INTRAPROCEDURE, 1 dose, On Thu08/21/25 at 0615, For ophthalmic surgical use only. Not for intravenous injection., Intra-op 614 (Due)1034 (Give n - Provider: Sree Colon MD) Epi-Shugarcaine: lidocaine-PF 2% (0.75 mL), EPINEPHrine-PF 1 mg/mL (1 mL), BSS (2.25 mL) 4 mL syringe (COMPLETED) 4 mL, Injection, ONCE INTRAPROCEDURE, 1 dose, On Thu08/21/25 at 0615, Epi-Shugarcaine - for ophthalmic surgical use only, not for intravenous injection, Intra-op 614 (Due)1026 (Give n - Provider: Sree Colon MD) EPINEPHrine-PF 1 mg/mL (0.5 mL) in BSS 500 mL irrigation bag (COMPLETED) 500 mL, Ophthalmic, ONCE INTRAPROCEDURE, 1 dose, On Thu08/21/25 at 0615, Intra-op 0615 (Due)1024 (Give n - Provider: Sree Colon MD) PRN Medication Order 08/19/2025 08/20/2025 08/21/2025 brimonidine (ALPHAGAN) 0.2 % ophthalmic solution (CANCELED) INTRAPROCEDURE, Starting on Thu08/21/25 at 1026, Until Thu08/21/25 at 1055, Intra-op 1026 (Given - Provid er: Sunita Braden RN) chondroitin sulf-sod hyaluronate (DUOVISC) intra-ocular kit (CANCELED) INTRAPROCEDURE, Starting on Thu08/21/25 at 1024, Until Thu08/21/25 at 1055, Intra-op 1024 (Given - Provid er: Sree Colon MD) phenylephrine (MYDFRIN) 2.5 % ophthalmic solution 1 Drop (COMPLETED) 1 Drop, Ophthalmic, PREPROCEDURE, 3 doses, Starting on Thu08/21/25 at 0906, Until Thu08/21/25 at 0930, Irritation, PREPROCEDURE, Administer one drop EVERY 5 MINUTES x 3 to operative eye, Pre-op (Holding/SDS Meds) 0912 (Given - Provid er: Rakel Wheatley RN)0916 (Given - Provider: Rakel Wheatley RN)0930 (Given - Provider: Rakel Wheatley RN) phenylephrine (MYDFRIN) 2.5 % ophthalmic solution 1 Drop(Linked Group 1) 1 Drop, Ophthalmic, PREPROCEDURE, 1 dose, Starting on Thu08/21/25 at 0906, Until Thu08/21/25 at 1502, Irritation, Pre-op dilation, Assess operative eye 15 minutes after second dose of eye gel. If eye is not dilating, give Mydriacyl 1% one drop to operative eye and Neosynephrine 2.5% one drop to operative eye. May repeat x 1 PRN, Pre-op (Holding/SDS Meds) povidone-iodine 5 % ophthalmic solution (CANCELED) INTRAPROCEDURE, Starting on Thu08/21/25 at 1026, Until Thu08/21/25 at 1055, Intra-op 1026 (Given - Provid er: Sunita Braden RN) proparacaine (ALCAINE) 0.5 % ophthalmic solution 1 Drop 1 Drop, Ophthalmic, PREPROCEDURE, 1 dose, Starting on Thu08/21/25 at 0906, Until Thu08/21/25 at 1502, Pain, PREPROCEDURE, One drop to the operative eye immediately prior to taking patient to [facility] for Tor[facility] IOL., Pre-op (Holding/SDS Meds) tropicamide (MYDRIACYL) 1 % ophthalmic solution 1 Drop (COMPLETED) 1 Drop, Ophthalmic, PREPROCEDURE, 3 doses, Starting on Thu08/21/25 at 0906, Until Thu08/21/25 at 0929, PREPROCEDURE, Administer 1 drop EVERY 5 MINUTES x 3 to operative eye, Pre-op (Holding/SDS Meds) 0913 (Given - Provid er: Rakel Wheatley RN)0916 (Given - Provider: Rakel Wheatley RN)0929 (Given - Provider: Rakel Wheatley RN) tropicamide (MYDRIACYL) 1 % ophthalmic solution 1 Drop(Linked Group 1) 1 Drop, Ophthalmic, PREPROCEDURE, 1 dose, Starting on Thu08/21/25 at 0906, Until Thu08/21/25 at 1502, Pre-op dilation, Assess operative eye 15 minutes after second dose of eye gel. If eye is not dilating, give Mydriacyl 1% one drop to operative eye and Neosynephrine 2.5% one drop to operative eye. May repeat x 1 PRN, Pre-op (Holding/SDS Meds) Linked Groups Order Group 1: tropicamide (MYDRIACYL) 1 % ophthalmic solution 1 DropJump to med 1 Drop, Ophthalmic, PREPROCEDURE, 1 dose, Starting on Thu08/21/25 at 0906, Until Thu08/21/25 at 1502, Pre-op dilation, Assess operative eye 15 minutes after second dose of eye gel. If eye is not dilating, give Mydriacyl 1% one drop to operative eye and Neosynephrine 2.5% one drop to operative eye. May repeat x 1 PRN, Pre-op (Holding/SDS Meds) And phenylephrine (MYDFRIN) 2.5 % ophthalmic solution 1 DropJump to med 1 Drop, Ophthalmic, PREPROCEDURE, 1 dose, Starting on Thu08/21/25 at 0906, Until Thu08/21/25 at 1502, Irritation, Pre-op dilation, Assess operative eye 15 minutes after second dose of eye gel. If eye is not dilating, give Mydriacyl 1% one drop to operative eye and Neosynephrine 2.5% one drop to operative eye. May repeat x 1 PRN, Pre-op (Holding/SDS Meds) documented in this encounter Orders Medications Ordered That Bakari ht Not Have Been Administered Count Last Ordered Date First Ordered Date brimonidine (ALPHAGAN) 0.2 % ophthalmic solution 1 08/21/2025 chondroitin sulf-sod hyaluro roc (DUOVISC) intra-ocular kit 1 08/21/2025 phenylephrine (MYDFRIN) 2.5 % ophthalmic solution 1 Drop 1 08/21/2025 povidone-iodine 5 % ophthalmic solution 1 1 proparacaine (ALCAINE) 0.5 % ophthalmic solution 1 Drop 1 08/21/2025 tropicamide (MYDRIACYL) 1 % ophthalmic solution 1 Drop 1 08/21/2025 cefUROXime 10 mg/mL in sodiu m chloride 0.9% 1 mL intracameral syringe 1 08/18/2025 Epi-Shugarcaine: lidocaine-P F 2% (0.75 mL), EPINEPHrine-PF 1 mg/mL (1 mL), BSS (2.25 mL) 4 mL syringe 1 08/18/2025 EPINEPHrine-PF 1 mg/mL (0.5 mL) in BSS 500 mL irrigation bag 1 08/18/2025 Discharge Count Last Ordered Date First Orde red Date DISCHARGE PATIENT 1 08/21/2025 documented in this encounter
--- OUTSIDE RECORDS SUMMARY | 2025-08-21 08:45 | XMS_ITS | Encounter Summary ---
Author Organization [place] [address] Care Team Providers Care Mixing Machine Feeder Name Role Phone Unavailable Primary Care Provider Unavailabl e Reason for Visit * Auth/Cert/Inpt Specialty Diagnoses / Procedures Referred By Sultana mcdonnell Referred To Contact Diagnoses Combined forms of age-related cataract of left eye Combined forms of age-related cataract of left eye [H25.812] Procedures OK XCAPSL CTRC RMVL INSJ IO LENS PROSTH W/O ECP LEFT EYE CATARACT EXTRACTION WITH PHACOEMULSIFICATION AND INTRAOCULAR LENS Referral ID Status Reason Start Date Expiration Date Visits Re quested Visits Authorized [id number] 1 1 Encounter Details Date Type Department Care Team (Latest Contact Info) Description 08/21/2025 9:45 AM EDT - 08/21/2025 10:15 [place] [address] Sree Colon MD [address] [place], [place] [id number] CATARACT EXTRACTION WITH PHACOEMULSIFICATION AND INTRAOCULAR LENS Surgery Details Date/Time Status Location OR Service Patient Class Case Class Case Type Trauma Case? 08/21/2025 9:45 AM Posted [facility] OSC 02 Ophthalmology Same Day Surgery Elective Panel 1 Procedure LRB Anes Op Region Wound Class Comments CATARACT EXTRACTION WITH PHACOEMULSIFICATION AND INTRAOCULAR LENS Left Monitored Anesthesia Care Eye Clean LEFT EYE CATARACT EXTRACTION WITH PHACOEMULSIFICATION AND INTRAOCULAR LENS Surgeon Surgeon Role Service Panel Sree Colon MD Primary Ophthalmology 1 Special Needs TOPICAL/MAC documented in this encounter Social History Tobacco Use Types Packs/Day Years [...] Sign Reading Time Taken Comments Blood Pressure 165/93 08/21/2025 8:59 AM EDT Pulse 83 08/21/2025 8:59 AM EDT Temperature 36.3 C (97.3 F) 08/21/2025 8:59 AM EDT Respiratory Rate 16 08/21/2025 8:59 AM EDT Oxygen Saturation 98% 08/21/2025 8:59 AM EDT Inhaled Oxygen Concentration - - Weight 97 kg (213 lb 14.4 oz) 08/21/2025 8:59 AM EDT Height 157.5 cm (5' 2 ) 08/21/2025 8:59 AM EDT Body Mass Index 39.12 08/21/2025 8:59 AM EDT documented in this encounter Discharge Instructions * Discharge Instructions* Sree Colon MD - 07/25/2025 12:41 PM EDT Images from the original note were not included. +++++++++++++++++++++++++++++++++++++++++++++++++++++++++++++++++++ [facility] Discharge Instructions - Following Anesthesia We appreciate [...] our office at . Get Well Soon! [facility] +++++++++++++++++++++++++++++++++++++++++++++++++++++++++++++++++++ [facility] Surgery Home Care Instructions Originated: Revised: 04/12/12 Medical Record File No. SURG C-14 Form No.: [id number] [facility] Best wishes are extended to you on behalf of [facility] as you are discharged. We hope you [...] COLON'S PHONE NUMBER: or or Toll Free [phone] THERE IS AN EYE PHYSICIAN COURSE DEVELOPER 24 HOURS A DAY, SEVEN DAYS A [...] correct medications and dosages. Patient and/or responsible libertarian verbalizes understanding of above instructions Surgery home care instructions Dr. Colon- Page 1 of 1 [phone] documented in this encounter Medications at Time [...] Colon MD - 08/21/2025 10:38 AM EDT [facility] Procedure Note Name: Elva Oliva : 1960 Age: 65 y.o. Date of Procedure: 08/21/25 Preoperative diagnosis: Cataract left eye Postoperative diagnosis: Same Procedure: Phacoemulsification with posterior chamber intraocular lens insertion left eye. Surgeon: Sree Colon M.D. Stone Banker: Chaya Hernandez M.D. Anesthesia: MAC with Topical Complications:None Implant: [id number] +27.5 [id number] Estimated Blood Loss: < 3cc Specimens [...] Ifnot received, call your surgeon's office. Location: [facility] Medications Take the following medications on the [...] No alcohol 24 hours prior to surgery. Business Continuity Manager It is important to have a Business Continuity Manager, someone who is 18 years or older, [...] concern, please reach out to our department [phone]. Hygiene [place] your teeth and gargle the morning of surgery. Shower the morning of surgery or the night before. Do not wear makeup (including eye makeup) lotion, powder, deodorant, perfume, or cologne. Remove nail norwegian prior to surgery. This includes artificial nails and gel nail norwegian. Personal Items Wear clean, simple, loose-fitting clothing (no jeans) and sturdy shoes (no flip flops or slides) [facility]. If having cataract surgery - it [...] your Living Will and/or Durable Power of See Supervisor for Healthcare. Notify the Surgeon Notify your surgeon if you develop any illness (fever, cold, cough, sore throat, nausea, vomiting, skin rashes etc.) between now and surgery time. Notify your surgeon and Pre-admission testing ([phone]) if you have any changes in your healthconditions or if any new medications are ordered between now and surgery. Questions or Concerns? If you have any questions or concerns, feel free to call the Pre-Admission testing department at [phone]. We want to make sure you feel safe and have an excellent experience while you are here. Do not reply to this message through [employer] as it may not be answered promptly. Surgery Center [facility] at [phone] - [address] [place] [address]. DOORS OPEN AT 6:30 AM Surgical Site [...] Suzanne (PAZ); InfectiousDiseases Society of [place] (IDSA); [facility]; Association for Professionals inInfection Control [...] Procedure Name Priority Date/Time Associated Diagnosis Comments OK XCAPSL CTRC RMVL INSJ IO LENS PROSTH W/O ECP 08/21/2025 10:11 AM EDT Combined forms of age-related cataract of left eye Special Needs TOPICAL/MAC documented in this encounter Visit Diagnoses Diagnosis Combined forms of age-related cataract of left eye Other and combined forms of senile cataract documented in this encounter Administered Medications Inactive Administered Medications - up to 1 most recent administrations Medication Order MAR Action Action Date Dose Rate Site brimonidine (ALPHAGAN) 0.2 % ophthalmic solution INTRAPROCEDURE, Starting on Thu08/21/25 at 1026, Until Thu08/21/25 at 1055, Intra-op Given 08/21/2025 10:26 AM EDT 1 Drop Left Eye cefUROXime 10 mg/mL in sodium chloride 0.9% 1 mL intracameral syringe 1 mL, Injection, ONCE INTRAPROCEDURE, 1 dose, On Thu08/21/25 at 0615, For ophthalmic surgical use only. Not for intravenous injection., Intra-op Given 08/21/2025 10:34 AM EDT 0.1 mL Left Eye chondroitin sulf-sod hyaluronate (DUOVISC) intra-ocular kit INTRAPROCEDURE, Starting on Thu08/21/25 at 1024, Until Thu08/21/25 at 1055, Intra-op Given 08/21/2025 10:24 AM EDT 1.05 mL Left Eye Epi-Shugarcaine: lidocaine-PF 2% (0.75 mL), EPINEPHrine-PF 1 mg/mL (1 mL), BSS (2.25 mL) 4 mL syringe 4 mL, Injection, ONCE INTRAPROCEDURE, 1 dose, On Thu08/21/25 at 0615, Epi-Shugarcaine - for ophthalmic surgical use only, not for intravenous injection, Intra-op Given 08/21/2025 10:26 AM EDT 0.5 mL Left Eye EPINEPHrine-PF 1 mg/mL (0.5 mL) in BSS 500 mL irrigation bag 500 mL, Ophthalmic, ONCE INTRAPROCEDURE, 1 dose, On Thu08/21/25 at 0615, Intra-op Given 08/21/2025 10:24 AM EDT 47 mL Left Eye phenylephrine (MYDFRIN) 2.5 % ophthalmic [...] (Holding/SDS Meds) povidone-iodine 5 % ophthalmic solution INTRAPROCEDURE, Starting on Thu08/21/25 at 1026, Until Thu08/21/25 at 1055, Intra-op Given 08/21/2025 10:26 AM EDT 1 Drop Left Eye proparacaine (ALCAINE) 0.5 % ophthalmic solution 1 [...] use only. Not for intravenous injection., Intra-op 0615 (Due)1034 (Give n - Provider: Sree Colon MD) Epi-Shugarcaine: lidocaine-PF 2% (0.75 mL), EPINEPHrine-PF 1 mg/mL (1 mL), BSS (2.25 mL) 4 mL syringe (COMPLETED) 4 mL, Injection, ONCE INTRAPROCEDURE, 1 dose, On Thu08/21/25 at 0615, Epi-Shugarcaine - for ophthalmic surgical use only, not for intravenous injection, Intra-op 0615 (Due)1026 (Give n - Provider: Sree Colon [...] Count Last Ordered Date First Ordered Date phenylephrine (MYDFRIN) 2.5 % ophthalmic solution 1 Drop 1 08/21/2025 proparacaine (ALCAINE) 0.5 % ophthalmic solution 1 Drop 1 08/21/2025 tropicamide (MYDRIACYL) 1 % ophthalmic solution 1 Drop 1 08/21/2025 Discharge Count Last Ordered Date First Orde red Date DISCHARGE PATIENT 1 08/21/2025 documented in this encounter
--- OUTSIDE RECORDS SUMMARY | 2025-08-21 09:11 | XMS_ITS | Encounter Summary ---
Author Organization [place] [address] Care Team Providers Care Chief Digital Media Officer Name Role Phone Unavailable Primary Care Provider Unavailabl e Reason for Visit * Auth/Cert/Inpt Specialty Diagnoses / Procedures Referred By Sultana t Referred To Contact Diagnoses Combined forms of age-related cataract of left eye Combined forms of age-related cataract of left eye [H25.812] Procedures [place] XCAPSL CTRC RMVL INSJ IO LENS PROSTH W/O ECP LEFT EYE CATARACT EXTRACTION WITH PHACOEMULSIFICATION AND INTRAOCULAR LENS Referral ID Status Reason Start Date Expiration Date Visits Re quested Visits Authorized [id number] 1 1 Encounter Details Date Type Department Care Team (Late st Contact Info) Description 08/21/2025 10:11 AM EDT Anesthesia Event [facility] [place] [id number] Arturo Peraza DO [address] [place] [address] Nick Og MD [address] [place] [address] [address] [place] [id number] Anesthesia Record Procedure Summary Procedure Name Responsible Anesthesiologist Anesthesia Start Time Anesthesia Stop Time CATARACT EXTRACTION WITH PHACOEMULSIFICATION AND INTRAOCULAR LENS (Left: Eye) Arturo Peraza DO 08/21/25 1011 08/21/25 1045 Events Date Time Event Comment 08/21/2025 0936 1011 An Start 1011 AN Equip Check 1011 An Start Data 1012 Start Supplemental O2 Disabl es direct capture of O2 [ANES AGENT O2 [[id number]] and Air flow [ANES AGENT AIR [[id number]] variables into chart. 1012 Immediate Pre Anesthetic Ass es 1013 Anesthesia Ready 1023 Time out 1023 Incision 1040 an stop data 1045 An Stop 1045 Handoff I completed my SBAR handoff to the receiving nurse which has included the followin. Identification of the patient, family, or patient surrogate 2. Identification of the responsible practitioner 3. Pertinent medical history 4. Surgical procedure and reason for procedure 5. Intraoperative anesthetic management 6. All current lines, drains and respiratory support. 7. Outstanding follow up orders (X-rays, consults etc) 8. Expectations/Plans for the early post-procedure period 9. Opportunity for questions and acknowledgement of understanding from the receiving PACU/ICU boarder steam Meds Name Total midazolam (VERSED) injection 1 mg/mL 2 m g fentaNYL 50 MCG/ML INJ 50 mcg proparacaine (ALCAINE) ophthalmic soluti on 0.5% 6 Drop * Agents Name O2 N2O Air * Blood No blood administrations on file. Lines, Drains, and Airways Type Details Placement Removal Peripheral IV 08/21/25; 0910; 22; Posterior, Right; Hand; BRANDI [place]; 1; None; 08/21/25; 1055; Therapy completed; Catheter intact, Dressing applied, No Complications 08/21/25 0910 by Rakel Wheatley, BRANDI 08/21/25 1055 by Christy Borrego RN Incision/Wound 08/21/25; 1023; Eye; Left; 08/21/25; 1457 08/21/25 1023 by Sunita Braden, BRANDI 08/21/25 1457 by Discharge Provider, Automatic documented in this encounter Social History Tobacco [...] on file documented as of this encounter OR Notes * Anesthesia Postprocedure Evaluation - Arturo Peraza, - 08/21/2025 3:35 PM EDT Post-Anesthesia Evaluation Note Patient Name: Elva Oliva Patient Date: August 21, 2025 Post-Anesthesia Evaluation Patient Location: SDS Post op vitals: stable Difficult airway: no Nausea controlled: yes Level of consciousness: awake and alert Post anesthesia pain: adequate analgesia Airway patency: patent Respiratory status: room air and spontaneous ventilation Cardiovascular status: stable and BP within 20% of baseline Hydration status: euvolemic Temperature: Normothermia Perioperative complications: NONE Vitals Value Taken Time BP 153/93 08/21/25 10:52 Resp 18 08/21/25 10:52 SpO2 99 % 08/21/25 10:52 Temp 36.7 ??C (98.1 ??F) 08/21/25 10:52 Pulse 63 08/21/25 10:52 * Anesthesia Preprocedure Evaluation - Arturo Peraza DO - 07/25/2025 12:40 PM EDT Pre-Anesthesia Evaluation Note Patient Name: Elva Oliva Sex: female Patient : 1960 Age: 65 y.o. Patient Date: August 21, 2025 Procedure(s): CATARACT EXTRACTION WITH PHACOEMULSIFICATION AND INTRAOCULAR LENS (Left: Eye) Vitals: 08/21/25 0859 BP: (!) 165/93 Pulse: 83 Resp: 16 Temp: 36.3 ??C (97.3 ??F) SpO2: 98% Medications ordered prior to the current encounter[1] Past Medical History[2] Surgical History[3] Anesthesia Evaluation Previous anesthesia. No history of anesthetic complications: Airway Mallampati: II TM distance: >3 FB Dental - normal exam Pulmonary (+) Physical exam: Comments: Clear to auscultation (-) no asthma, no URI cough sputum Cardiovascular - negative ROS (+)Exercise tolerance: good Physical exam: Rhythm: regular Rate: normal (-) no angina, no arrhythmias, no shortness of breath Neuro/Psych - negative ROS (-) seizures GI/Hepatic/Renal - negative ROS (-) no GERD/PUD, no cirrhosis, no chronic kidney disease Endo/Other (+)Obese: Arthritis: Osteoarthritis (-) no cervical pain BLOCKER AUTOMATIC (+) Non childbearing due to: Hysterectomy Additional Pre-evaluation comments Opioids Body mass index is 39.12 kg/m??. Anesthesia Plan ASA 2 Last solid intake: The patient has not eaten within the last 8 hours. Last clear liquid intake: The patient has not had clear liquids within the last 2 hours. Anesthesia Plan: MAC Induction: intravenous Monitors: STD Sedation with analgesia needed to provide anxiolysis and to improve comfort/cooperation for the patient while lying flat for the procedure. Second Eye Informed consent Anesthetic plan and risks discussed with: patient. Chart Reviewed and patient examined [1] No current facility-administered medications on file prior to encounter. Current Outpatient Medications on File Prior to Encounter Medication Sig Dispense Refill ibuprofen (ADVIL;MOTRIN) 200 mg Oral Tablet Take 200 mg by mouth every 8 hours as needed for Pain. [2] Past Medical History: Diagnosis Date Arthritis Pneumonia During COVID [3] Past Surgical History: Procedure Laterality Date CATARACT REMOVAL Right 08/07/2025 RIGHT EYE CATARACT EXTRACTION WITH PHACOEMULSIFICATION AND INTRAOCULAR LENS; Surgeon: Sree Beckman MD; Location: [facility]; Service: Ophthalmology CHOLECYSTECTOMY HYSTERECTOMY documented in this encounter Plan of Treatment Not on file documented as of this encounter Visit Diagnoses Not on filedocumented in this encounter Administered Medications Inactive Administered Medications - up to 1 most recent administrations Medication Order MAR Action Action Date Dose Rate Site fentaNYL (SUBLIMAZE) injection Intravenous, PRN (Anesthesia), Starting on Thu08/21/25 at 1012, Until Thu08/21/25 at 1040, Anesthesia Intra-op Given 08/21/2025 10:12 AM EDT 50 mcg midazolam (VERSED) injection Intravenous, PRN (Anesthesia), Starting on Thu08/21/25 at 1012, Until Thu08/21/25 at 1040, Anesthesia Intra-op Given 08/21/2025 10:16 AM EDT 1 mg proparacaine (ALCAINE) 0.5 % ophthalmic solution Ophthalmic, PRN (Anesthesia), Starting on Thu08/21/25 at 1012, Until Thu08/21/25 at 1040, Anesthesia Intra-op Given 08/21/2025 10:14 AM EDT 2 Drops documented in this encounter
[2025-10-13 15:51] VITALS: BP 145/70; PULSE 97; RESP 20; TEMP 36.9; O2SAT 94; BMI 42.0
[2025-10-13 16:04] VITALS: BP 111/92; PULSE 94; O2SAT 93
[2025-10-13 16:04] LABS: Coronavirus 19, PCR Not Detected (NotDetected); Influenza A, PCR Not Detected (NotDetected); Influenza B, PCR Not Detected (NotDetected)
--- NOTE | 2025-10-13 16:15 | XR_ITS ---
PROCEDURE INFORMATION: Exam: XR Chest Exam date and time: 10/13/2025 4:24 PM Age: 65 years old Clinical indication: Cough; Additional info: Productive cough, possible pneumonia TECHNIQUE: Imaging protocol: Radiologic exam of the chest. Views: 2 views. COMPARISON: CR XR CHEST 2V 09/14/2022 12:40 PM FINDINGS: Lungs: Hazy right upper lobe infiltrate along the minor fissure. Left lung is clear. Pleural spaces: No pleural effusion. No pneumothorax. Heart/Mediastinum: No cardiomegaly. Bones/joints: Unremarkable. IMPRESSION: Hazy right upper lobe infiltrate along the minor fissure, concerning for infectious pneumonia. Recommend follow-up imaging to complete resolution.
--- OUTSIDE RECORDS SUMMARY | 2025-10-13 16:16 | XMS_ITS | Clinical Summary ---
Author Organization [facility]UMOUBushraMon[facility] Address [facility] [place] [address] Phone Care Team Providers Care Chief Concierge Name Role Phone Unavailable Primary Care Provider Unavailabl e Allergies No known active allergies Medications ibuprofen (ADVIL;MOTRIN) 200 mg Oral Tablet Take 200 mg by mouth every 8 hours as needed for Pain. Active Encounters Date Type Department Care Team Description 08/21/2025 10:11 AM EDT Anesthesia Event [facility] [address] [place] [address] Arturo Peraza DO Crouch, James C, MD 08/21/2025 9:45 AM EDT - 08/21/2025 10:15 AM EDT Surgery [facility] [address] [place] [address] Sree Beckman MD CATARACT EXTRACTION WITH PHACOEMULSIFICATION AND INTRAOCULAR LENS 08/21/2025 8:25 AM EDT - 08/21/2025 10:56 AM EDT Hospital Encounter [facility] [address] [place] [address] Sree Beckman MD Discharge Disposition: Home or Self Care 08/21/2025 Travel 08/07/2025 10:30 AM EDT Anesthesia Event [facility] [address] [place] [address] Rylan Germain MD Crouch, James C, MD 08/07/2025 9:45 AM EDT - 08/07/2025 10:15 AM EDT Surgery [facility] [address] [place] [address] Sree Beckman MD CATARACT EXTRACTION WITH PHACOEMULSIFICATION AND INTRAOCULAR LENS 08/07/2025 8:30 AM EDT - 08/07/2025 11:13 AM EDT Hospital Encounter [place] [address] [address] Sree Beckman MD Discharge Disposition: Home or Self Care 08/07/2025 Travel 07/25/2025 Travel from Last 3 Months Surgical History Surgery Date Site/Laterality Comments HYSTERECTOMY CHOLECYSTECTOMY CATARACT REMOVAL 08/07/2025 Eye/Right RIGHT EYE CATARACT EXTRACTION WITH PHACOEMULSIFICATION AND INTRAOCULAR LENS; Surgeon: Sree Beckman MD; [facility]; Service: Ophthalmology Medical devices from this surgery are in the Medical Devices section. CATARACT REMOVAL 08/21/2025 Eye/Left LEFT EYE CATARACT EXTRACTION WITH PHACOEMULSIFICATION AND INTRAOCULAR LENS; Surgeon: Sree Beckman MD; [facility]; Service: Ophthalmology Medical devices from this surgery are in the Medical Devices section. Medical History Medical History Date Comments Pneumonia During COVID Arthritis Family History Medical History Relation Name Comments Anesth Problems Neg Hx Social History Tobacco Use Types Packs/Day Years Used Date Smoking Tobacco: Former Cigarettes Passive Smoke Exposure: Past Smokeless Tobacco: Never Tobacco Cessation:Counseling Given: Not Answered Alcohol Use Standard Drinks/Week Comments Not Currently 0 (1 standard drink = 0.6 oz pur e alcohol) Comments No Sex and Gender Information Value Date Recorded Sex Assigned at Not on file Legal Sex Female 6:12 AM EDT Gender Identity Not on file Sexual Orientation Not on file Last Filed Vital Signs Vital Sign Reading [...] Mass Index 39.12 08/21/2025 8:59 AM EDT Plan of Treatment Health Maintenance Due Date Last Done Comments Wellness Exam Medicare 1961 Hepatitis C Screening 02/23/1976 DTaP/TDaP/Td (1 - Tdap) 1977 Breast Cancer Screening 1998 Cologuard 2003 Colon Cancer Screening 2003 Colonoscopy 2003 FIT 2003 Sigmoidoscopy 2003 Virtual Colonography 2003 Pneumococcal Vaccine 50+ (1 of 1 - PCV) 02/23/2008 Zoster (1 of 2) 02/23/2008 Bone Density Screening 2023 COVID-19 Vaccine ( - 2024-2 6 season) 2025 Influenza Vaccine (#1) 2025 Hepatitis B Vaccine Aged Out No longe r eligible based on patient's age to complete this topic Meningococcal B Vaccine Aged Out No l onger eligible based on patient's age to complete this topic Medical Devices Implanted Type Area Program Or Project Administrator Device Identifier Shelf Expiration Date Model / Serial / Lot Lens Iol 1-Piece 27.5 Diopter Preloaded Acrylic Foldable Pc - [id number] Implanted:Qty: 1 on 08/07/2025 by Sree Beckman MD at [facility] Right: Eye [facility]:SURG [id number] 06/20/2027 CNA0T0.275 / [id number] 1 / Lens Iol 1-Piece 27.5 Diopter Preloaded Acrylic Foldable Pc - [id number] Implanted:Qty: 1 on 08/21/2025 by Sree Beckman MD at [facility] Left: Eye [employer] [facility]:SURG [id number] 11/01/2027 CNA0T0 .275 / [id number] 4 / Procedures Procedure Name Priority Date/Time Associated Diagnosis Comments [place] XCAPSL CTRC RMVL INSJ IO LENS PROSTH W/O ECP 08/21/2025 10:11 AM EDT Combined forms of age-related cataract of left eye Special Needs TOPICAL/MAC [place] XCAPSL CTRC RMVL INSJ IO LENS PROSTH W/O ECP 08/07/2025 10:30 AM EDT Combined forms of age-related cataract of right eye Special Needs TOPICAL/MAC, MODEL: CNA0T0 POWER: +27.50 from Last 3 Months [facility]
--- OUTSIDE RECORDS SUMMARY | 2025-10-13 16:16 | XMS_ITS | Encounter Summary ---
Author Organization [facility] [place] [address] Care Team Providers Care Gold Blower Name Role Phone Unavailable Primary Care Provider Unavailabl e Encounter Details Date Type Department Care Team (Latest Contact Info) Description 08/21/2025 Travel Social History Tobacco Use Types Packs/Day Years [...] on file documented as of this encounter Plan of Treatment Not on file documented as of this encounter Visit Diagnoses Not on filedocumented in this encounter
--- NOTE | 2025-10-13 16:17 | HMH.EDGENADL ---
Discharge Plan Disposition Patient Disposition: Admitted Clinical Impressions Clinical Impression: Pneumonia, Hypoxia Discharge ED Provider: Tera Reese General Adult HPI General Chief complaint: Nausea/Vomiting/Diarrhea Stated complaint: SOA,Wheezing,body aches,Left earache,c congestion Time Seen by Provider: 10/13/25 16:06 Mode of Arrival: Ambulatory Source of Information: Patient Description of Symptoms (Recalled from ER Triage Doc. by RN): PT states she has been batling head congestion and drainage for about a week now. Pt states she hasnt been out of bed in two days. Pt c/o intense nausea, exhaustion, body aches, drainage and congestion. Pt has been coughing up clear fluid for around a week History of Present Illness HPI narrative: Elva Oliva is a 65-year-old female with no reported medical history who presents to the emergency department for complaints of nasal congestion/sinus drainage for a week and 3 days of muscle aches, cough productive of clear sputum, left ear pain. Patient states that she has been alternating Tylenol and Advil over the past week without significant symptoms. She states that she is also been alternating feeling cold with chills and waking up in a sweat. She denies any significant shortness of breath. She reports pain in her shoulders and her back and muscles in her extremities. She states that she blew her nose 3 days ago and felt a pop in her left ear and has had pain in that ear ever since. She reports there is been several family members with similar type illness recently. She also reports that yesterday she had a few episodes of nonbloody diarrhea. She denies any urinary symptoms. Related Data Home Medications ?Medication ?Instructions ?Recorded ?Confirmed No Known Home Medications 07/19/25 10/13/25 Allergies Allergy/AdvReac Type Severity Reaction Status Date / Time No Known Allergies Allergy Verified 08/02/25 09:25 [facility] Disclaimer: The information contained in this section may have been updated after the patient was seen, as this information can be updated by other users. Medical History Bilateral cataracts Personal history of smoking Osteoarthritis of right knee OAB (overactive bladder) COPD (chronic obstructive pulmonary disease) Surgical History History of cholecystectomy History of hysterectomy Family History Other Cancer Heart attack Hypertension Social History (Updated 10/13/25 @ 20:40 by Karely Duncan RN) Smoking Status: Former smoker alcohol intake: never current occupational status: employed and other Travel in the last 8 weeks?: Inside the [place] household members: spouse housing: house current occupation: [employer], clerical current occupational exposures/hazards: No Have you lived/traveled outside US in past 30 days?: No Contact w/someone who lives/traveled outside US past 30 days?: No Exposure to someone with infectious disease in past 14 days?: No Do you have a fever (greater than 100.4 F or 38 C)?: No Have you tested positive for COVID-19?: No Exposed to someone with COVID-19 in past 14 days?: No Do you have a sore throat?: No Do you have a cough?: No Do you have any weakness?: No Are you experiencing any nausea/vomitting?: No Do you have any diarrhea?: No Are you experiencing any unusual bleeding?: No Do you have any muscle aches/pain?: Yes Do you have any abdominal pain?: No Are you experiencing loss of taste or smell?: No Other Medical History Have you received the Flu Vaccine for this season: No Have you received the Pneumonia Vaccine: No ROS Obtained: Yes Systems reviewed as appropriate & no additional complaints except as documented Physical Exam General General appearance: alert and in no apparent distress Comment: Ill but non-toxic appearing Head Head exam: atraumatic Eye Eye exam: Present normal appearance ENT ENT exam: Present normal external ear exam Neck Neck exam: Present full ROM Chest Chest inspection: Present symmetric chest wall rise Respiratory Respiratory exam: Present normal lung sounds bilaterally; Absent respiratory distress, wheezes or stridor Cardiovascular Cardiovascular exam: Present regular rate and normal rhythm Abdominal Exam Abdominal exam: Present soft; Absent distention, tenderness, guarding or rigidity Extremities Exam Extremities exam: Present normal inspection Back Exam Back exam: Present normal inspection Neurological Exam Neurological exam: Present alert and oriented X3 Psychiatric Psychiatric exam: Present normal affect Skin Skin exam: Present warm and dry Medical Decision Making Medical Records Screening: Per USPSTF and CDC recommendations, given the prevalence of disease in our region, it is our hospital?s policy to screen for HIV and viral Hepatitis for all patients aged 18 and over and those with ongoing risk factors. [place] Inquiry Pt receiving controlled substance: No Vital Signs: 10/13/25 15:51 10/13/25 16:04 10/13/25 17:00 Temperature 98.4 F Temperature Source Skin Pulse Rate 94 H 84 Pulse Rate [Right] 97 H Respiratory Rate 20 Blood Pressure 111/92 H 130/75 Blood Pressure [Right Arm] 145/70 H Blood Pressure Mean [Right Arm] 95 Blood Pressure Source [Right Arm] Automatic Cuff Blood Pressure Position [Right Arm] Sitting 02 Sat by Pulse Oximetry 94 L 93 L 90 L Oxygen Delivery Method Room Air Room Air Oxygen Flow Rate (LPM) 10/13/25 17:25 10/13/25 18:44 10/13/25 20:15 Temperature 97.8 F Temperature Source Pulse Rate 74 Pulse Rate [Right] Respiratory Rate 18 Blood Pressure 126/78 Blood Pressure [Right Arm] Blood Pressure Mean [Right Arm] Blood Pressure Source [Right Arm] Blood Pressure Position [Right Arm] 02 Sat by Pulse Oximetry 90 L Oxygen Delivery Method Room Air Nasal Cannula Room Air Oxygen Flow Rate (LPM) 2 Lab Data Lab Results 10/13/25 15:58: SARS-CoV-2 (PCR) Not detected, Influenza A Untype (PCR) Not detected, Influenza Type B (PCR) Not detected 10/13/25 16:32: WBC 10.6, RBC 4.92, Hgb 14.7, Hct 44.7, MCV 90.9, MCH 29.9, MCHC 32.9, RDW 13.0, Plt Count 173, MPV 11.1 H, Neut % (Auto) 80.3 H, Lymph % (Auto) 13.2, [place] % (Auto) 5.8, Eos % (Auto) 0.1, Baso % (Auto) 0.2, Neut # (Auto) 8.5 H, Lymph # (Auto) 1.4, [place] # (Auto) 0.6, Eos # (Auto) 0.0, Baso # (Auto) 0.0, Sodium 135 L, Potassium 4.2, Chloride 103, Carbon Dioxide 24, Anion Gap 12.2, BUN 13, Creatinine 1.00, Estimated Creat Clear 43, Estimated GFR 55 L, Est GFR ( Amer) 67, Glucose 122 H, Calcium 9.2, Total Bilirubin 0.9, AST 75 H, ALT 52, Alkaline Phosphatase 121, Troponin I < 0.01, C-Reactive Protein 164.0 H, Total Protein 8.6 H D, Albumin 4.6, Globulin 4.0 H, Albumin/Globulin Ratio 1.2, Lipase 46 10/13/25 16:32 10/13/25 16:32 Orders (Tests/Meds): ED MEDICATIONS Generic Name Dose Route Start Last Admin Trade Name Frenikia PRN Reason Stop Dose Admin Acetaminophen 650 mg 10/13/25 19:50 Acetaminophen 325mg Tab PO 11/12/25 19:49 Q4HP PRN Fever or Mild Pain (1-3) Albuterol/Ipratropium 3 ml 10/13/25 19:54 Ipratropium/Albuterol 3 Ml Neb IH 11/12/25 19:53 Q6HP PRN Shortness Of Breath Guaifenesin 200 mg 10/13/25 19:54 Guaifenesin 200mg/10ml Syrup Udc PO 11/12/25 19:53 Q4HP PRN Cough Azithromycin 500 mg/ Sodium 250 mls @ 250 mls/hr 10/14/25 17:00 Chloride IV 10/24/25 16:59 Q24H ROSSI Ceftriaxone Sodium 2 gm/ 100 mls @ 200 mls/hr 10/14/25 17:00 Sodium Chloride IV 10/24/25 16:59 Q24H ROSSI Sodium Chloride 1,000 mls @ 50 mls/hr 10/13/25 22:15 10/13/25 22:36 Sod Chlor 0.9% 1000ml Bag IV 11/12/25 22:14 50 mls/hr .Q20H ROSSI Administration Ondansetron HCl 4 mg 10/13/25 20:00 Ondansetron 4mg/2ml Vial IV 11/12/25 19:59 Q6HP PRN Nausea Sodium Chloride 10 ml 10/13/25 22:11 Sodium Chloride 0.9% 10ml Flush Syringe IV 11/12/25 22:10 NEEDED PRN Maintain IV Site Discontinued Medications Generic Name Dose Route Start Last Admin Trade Name Freq PRN Reason Stop Dose Admin Ceftriaxone Sodium 2 gm/ 100 mls @ 200 mls/hr 10/13/25 17:22 10/13/25 19:07 Sodium Chloride IV 10/13/25 17:51 Infused ONCE ONE Infusion Azithromycin 500 mg/ Sodium 250 mls @ 250 mls/hr 10/13/25 17:24 10/13/25 21:00 Chloride IV 10/13/25 17:25 Infused ONCE ONE Infusion Ketorolac Tromethamine 15 mg 10/13/25 16:15 10/13/25 16:43 Ketorolac 15mg/Ml Vial IV 10/13/25 16:16 15 mg ONCE ONE Administration ORDERS Category Date Time Status CXR 2 view (NOT portable) [XR chest 2V] Stat Exams 10/13/25 16:15 Completed CBC w/Auto Diff [Complete Blood Count Auto Diff] Stat Lab 10/13/25 16:32 Completed CMP [Comprehensive Metabolic Panel] Stat Lab 10/13/25 16:32 Completed CRP [C-Reactive Protein] Stat Lab 10/13/25 16:32 Completed Lipase Stat Lab 10/13/25 16:32 Completed Rapid PCR Covid and Flu A/B Stat Lab 10/13/25 15:58 Completed Troponin I Stat Lab 10/13/25 16:32 Completed UA [Urinalysis and Microscopic] Stat Lab 10/13/25 22:40 Completed Blood Culture Stat Micro 10/13/25 17:45 Received EKG Request [ECG Request] Stat Y 10/13/25 16:15 Ordered ECG Data Tracing #1: I reviewed this ECG and interpreted as documented below: Normal sinus rhythm. No ST elevation or depression. QTc normal at 386 Medical Decision Narrative: Elva lOiva is a 65-year-old female with no reported medical history who presents to the emergency department for complaints of nasal congestion/sinus drainage for a week and 3 days of muscle aches, cough productive of clear sputum, left ear pain. Patient states that she has been alternating Tylenol and Advil over the past week without significant symptoms. She states that she is also been alternating feeling cold with chills and waking up in a sweat. She denies any significant shortness of breath. She reports pain in her shoulders and her back and muscles in her extremities. She states that she blew her nose 3 days ago and felt a pop in her left ear and has had pain in that ear ever since. She reports there is been several family members with similar type illness recently. She also reports that yesterday she had a few episodes of nonbloody diarrhea. She denies any urinary symptoms. On arrival, patient is mildly hypertensive, heart rate 97 bpm, maintaining appropriate oxygen saturation on room air. Afebrile. Physical exam, stated above, revealed an ill but nontoxic-appearing female in no significant distress. She does have sinus congestion. She has tenderness over her maxillary sinuses bilaterally. No swelling is appreciated. Cardiopulmonary exams unremarkable without murmur or rub. No wheezing, rales or rhonchi. Abdomen is nondistended and overall soft and no significant tenderness. Patient does report that she has been drinking Pedialyte at home without vomiting or significant nausea and feels that she is hydrated. Differential diagnosis includes, but is not limited to: Viral respiratory illness, COVID, influenza, viral versus bacterial sinusitis, pericarditis, myocarditis, pneumonia, ACS, UTI, colitis, among others. Patient is PERC negative for PE. The most morbid conditions were considered and workup was based on these. Initial workup in the Emergency Department included: Hematologic labs, urinalysis, EKG, chest x-ray, rapid COVID and flu testing. Patient administered 15 mg of IV Toradol for pain. EKG without evidence of ischemia. See interpretation above. Laboratory studies shows borderline elevated white blood cell count of 10.6 with neutrophilia with 80.3% absolute neutrophils. Mild hyponatremia at 135 but electrolytes nonactionable and within normal limits otherwise. No JENNIFER. AST mildly elevated at 75 but liver enzymes otherwise within normal limits and bilirubin normal at 0.9. No troponin less than 0.01. CRP elevated at 164. Lipase normal at 46. Negative COVID and flu testing. Chest x-ray was interpreted by me personally and shows a hazy opacity in the right upper lobe concerning for pneumonia. See radiology report for details. On reassessment, patient is resting comfortably in the room with good pleth pulse oximetry monitoring with SpO2 of 90%. Will place patient on 2 L nasal cannula at this time. Oxygen saturation improved to 95% SpO2. Given patient's hypoxia requiring supplemental oxygen in the setting of pneumonia. Will administer IV Rocephin 2 g and 500 mg of IV azithromycin. I do feel patient will require admission given her new oxygen requirement. I did discuss this with patient and she is in agreement with this plan. I then discussed patient's case with Dr. Hdez for admission. Patient was subsequently admitted to the hospital medicine service for further management of her pneumonia. Critical Care Critical Care Time Critical Care Time: No
[2025-10-13 16:41] LABS: Hematocrit 44.7 % (37.0-47.0); Hemoglobin 14.7 g/dL (12.2-16.2); Immature Granulocytes % 0.4 %; Mean Corpuscular HGB Conc 32.9 g/dL (31.8-35.4); Mean Corpuscular Hemoglobin 29.9 pg (27.0-31.2); Mean Corpuscular Volume 90.9 fl (81-99); Nucleated Red Blood Cells % 0 %; Platelet Count 173 K/mm3 (142-424); Red Blood Count 4.92 M/mm3 (4.20-5.40); Red Cell Distribution Width-SD 43.4 fL; White Blood Count 10.6 K/mm3 (4.8-10.8)
[2025-10-13] MEDS: KETOROLAC 15MG/ML VIAL 15 MG IV (16:43)
[2025-10-13 16:49] LABS: Alanine Aminotransferase 52 U/L (12-78); Albumin Level 4.6 g/dl (3.5-5.0); Albumin/Globulin Ratio 1.2 (1.1-1.8); Alkaline Phosphatase 121 U/L (38-126); Anion Gap 12.2 mEq/L (5-15); Aspartate Amino Transferase 75 U/L (14-36); Bilirubin,Total 0.9 mg/dl (0.2-1.3); Blood Urea Nitrogen 13 mg/dl (7-17); Calcium 9.2 mg/dl (8.4-10.2); Carbon Dioxide 24 mmol/L (22.0-30.0); Chloride 103 mmol/L (98-107); Creatinine Clearance Estimated 43 mL/min (50-200); Creatinine,Serum 1.00 mg/dl (0.52-1.04); Estimated Glomerular Filt Rate 55 ml/min (>60); GFR (African American) 67 ML/MIN (>60); Globulin 4.0 g/dL (1.3-3.2); Glucose 122 mg/dl (74-100); Lipase 46 U/L (23-300); Potassium 4.2 mmoL/L (3.5-5.1); Sodium 135 mmol/L (136-145); Total Protein,Serum 8.6 g/dl (6.3-8.2)
[2025-10-13 16:55] LABS: C-Reactive Protein 164.0 mg/L (0-4)
[2025-10-13 17:00] VITALS: BP 130/75; PULSE 84; O2SAT 90
--- NOTE | 2025-10-13 17:08 | ECG_ITS ---
APPROVED REPORT Exam: Resting ECG HR:76 bpm ECG Measurements Heart Rate 76 AXES MI 137 P 65 QRSd 82 QRS 75 QT 356 T 70 QTc 386 Conclusion SINUS RHYTHM NORMAL ECG UNCONFIRMED REPORT Normal sinus rhythm. No STEMI Electronically signed by : DAMION EUEGNE, 10/13/2025 21:37:51
[2025-10-13 17:13] LABS: Troponin I < 0.01 ng/ml (0.00-0.034)
[2025-10-13 17:25] VITALS: O2SAT 90
[2025-10-13] MEDS: AZITHROMYCIN 500 MG in 0.9 % SODIUM CHLORIDE 250 ML 250 MG IV (18:08)
--- NOTE | 2025-10-13 19:42 | PC.NURSE ---
report called to BRANDI Chavez
--- NOTE | 2025-10-13 19:55 | P.HP_ITS ---
<Statement entered by Nick Mullins MD - 10/14/25 12:16> Rounded on patient after nurse practitioner. Personally examined and interviewed patient. Agree with exam findings and care plan as documented. History of Present Illness *Admission Date: 10/13/25 *Reason for visit:: Muscle aches, congestion *History of present illness: Elva Oliva is a 65-year-old female past medical history significant for osteoarthritis, OAB, COPD. Presents to [facility] due to nasal congestion, sinus drainage, productive cough and left ear pain for the past 3 to 4 days. Exacerbated since onset. Noted symptoms are very similar to when she had COVID-pneumonia a few years ago. Reports that today upon waking she felt fatigued very little energy to get out of bed. Due to progressive symptoms she followed up to the emergency department for further evaluation. Upon workup, she was found to be hypoxic and placed on 2 L nasal cannula. Baseline on room air. Imaging study revealed right upper lobe infiltrate. Patient also endorses poor intake over the past 24 hours due to fatigue and nausea. Denies any episodes of emesis. She also noted multiple episodes of diarrhea over the last several days. Noted subjective fever with chills. Denies any known alleviating or aggravating factors. Denies chest pain, vomiting, urinary symptoms, hemoptysis. Initial ED workup included laboratory studies and imaging. Significant laboratory findings AST 75, CRP 164, UA with 1+ protein, 1+ urobilinogen, 1+ bacteria-notable squamous epithelial (10-20). Imaging obtained per chest x-ray, I personally reviewed showing right upper lobe infiltrate concerning for pneumonia. The patient at bedside she is without acute distress resting in bed comfortably. Currently on 2 L nasal cannula. Hemodynamically stable. [facility] Disclaimer: The information contained in this section may have been updated after the patient was seen, as this information can be updated by other users. Medical History Bilateral cataracts Personal history of smoking Osteoarthritis of right knee OAB (overactive bladder) COPD (chronic obstructive pulmonary disease) Surgical History History of cholecystectomy History of hysterectomy Family History Other Cancer Heart attack Hypertension Social History Smoking Status: Former smoker alcohol intake: never current occupational status: employed and other Travel in the last 8 weeks?: [place] the [place] household members: spouse housing: house current occupation: [employer], clerical current occupational exposures/hazards: No Have you lived/traveled outside [place] in past 30 days?: No Contact w/someone who lives/traveled outside [place] past 30 days?: No Exposure to someone with infectious disease in past 14 days?: No Do you have a fever (greater than 100.4 F or 38 C)?: No Have you tested positive for COVID-19?: No Exposed to someone with COVID-19 in past 14 days?: No Do you have a sore throat?: No Do you have a cough?: No Do you have any weakness?: No Are you experiencing any nausea/vomitting?: No Do you have any diarrhea?: No Are you experiencing any unusual bleeding?: No Do you have any muscle aches/pain?: Yes Do you have any abdominal pain?: No Are you experiencing loss of taste or smell?: No Other Medical History Have you received the Flu Vaccine for this season: No Have you received the Pneumonia Vaccine: No Review of Systems Review of Systems Review of systems:: pertinent systems reviewed and negative unless documented below Constitutional Constitutional: Reports system reviewed and no additional complaints, except as documented and Reports as per HPI Eyes Eyes: Reports system reviewed and no additional complaints, except as documented and Reports as per HPI ENT Ears, Nose, Mouth, and Throat: Reports system reviewed and no additional complaints, except as documented and Reports as per HPI *Cardiovascular Cardiovascular: Reports system reviewed and no additional complaints, except as documented, Reports as per HPI and Reports dyspnea *Respiratory Respiratory: Reports as per HPI, Reports cough, Reports dyspnea and Reports wheezing *Gastrointestinal Gastrointestinal: Reports as per HPI, Reports diarrhea and Reports nausea *Genitourinary Genitourinary: Reports system reviewed and no additional complaints, except as documented and Reports as per HPI *Musculoskeletal Musculoskeletal: Reports as per HPI, Reports muscle weakness and Reports myalgias Integumentary/Breasts Skin/Breast: Reports system reviewed and no additional complaints, except as documented and Reports as per HPI *Neurologic Neurologic: Reports system reviewed and no additional complaints, except as documented and Reports as per HPI Psychiatric Psychiatric: Reports system reviewed and no additional complaints, except as documented and Reports as per HPI Endocrine Endocrine: Reports system reviewed and no additional complaints, except as documented and Reports as per HPI Hematologic/Lymphatic Hematologic/Lymphatic: Reports system reviewed and no additional complaints, except as documented and Reports as per HPI Allergic/Immunologic Allergic/Immunologic: Reports wheezing Meds Home Medications and Allergies Home Medications ?Medication ?Instructions ?Recorded ?Confirmed ?Type No Known Home Medications 07/19/2509/25 History New Prescriptions to Start Prescriptions: Allergies Allergy/AdvReac Type Severity Reaction Status Date / Time No Known Allergies Allergy Verified 08/02/25 09:25 Exam Data for Last 24 hours Vital signs and Labs for Last 24 Hours: Temp Pulse Resp BP Pulse Ox O2 Del Method 98.4 F 84 20 130/75 90 L Room Air 10/13/25 15:51 10/13/25 17:00 10/13/25 15:51 10/13/25 17:00 10/13/25 17:25 10/13/25 17:25 Laboratory Results - last 24 hr 10/13/25 15:58: SARS-CoV-2 (PCR) Not detected, Influenza A Untype (PCR) Not detected, Influenza Type B (PCR) Not detected 10/13/25 16:32: WBC 10.6, RBC 4.92, Hgb 14.7, Hct 44.7, MCV 90.9, MCH 29.9, MCHC 32.9, RDW 13.0, Plt Count 173, MPV 11.1 H, Neut % (Auto) 80.3 H, Lymph % (Auto) 13.2, Vance % (Auto) 5.8, Eos % (Auto) 0.1, Baso % (Auto) 0.2, Neut # (Auto) 8.5 H, Lymph # (Auto) 1.4, Vance # (Auto) 0.6, Eos # (Auto) 0.0, Baso # (Auto) 0.0, Sodium 135 L, Potassium 4.2, Chloride 103, Carbon Dioxide 24, Anion Gap 12.2, BUN 13, Creatinine 1.00, Estimated Creat Clear 43, Estimated GFR 55 L, Est GFR ( Amer) 67, Glucose 122 H, Calcium 9.2, Total Bilirubin 0.9, AST 75 H, ALT 52, Alkaline Phosphatase 121, Troponin I < 0.01, C-Reactive Protein 164.0 H, Total Protein 8.6 H D, Albumin 4.6, Globulin 4.0 H, Albumin/Globulin Ratio 1.2, Lipase 46 I & O for Last 24 hours: Intake & Output 10/10/25 10/11/25 10/12/25 10/13/25 23:59 23:59 23:59 23:59 Intake Total 100 / 100 Balance 100 / 100 Weight 104.326 kg *Routine HEENT Exam Head: Present normocephalic, atraumatic and cushingoid faces Eye: Present EOMI, PERRL and normal accommodation ENT: Present mucous membranes dry *Routine Neck Exam Neck: Present supple and full ROM *Routine Respiratory Exam Respiratory: Present decreased breath sounds, rhonchi, normal respiratory effort and able to speak in complete sentences *Routine Cardiovascular Exam Cardiovascular: Present RRR, Normal S1 and Normal S2 *Routine Abdominal Exam Abdominal: Present soft and normoactive bowel sounds *Routine Rectal Exam Rectal:: deferred *Routine Genitalia Exam Genitalia:: deferred *Routine Extremities Exam Extremities: Present full ROM, pulses intact and normal capillary refill *Routine Skin Exam Skin: Present intact *Routine Neurological Exam Neurological: Present alert, oriented X3 and CN II-XII intact Routine Psychiatric Exam Psychiatric: Present normal affect and normal thought process Assessment and Plan *Assessment and plan (1) Acute respiratory failure with hypoxia: Status: Acute Category: Medical Code(s): J96.01 - Acute respiratory failure with hypoxia (2) Community acquired pneumonia of right upper lobe of lung: Status: Acute Category: Medical Code(s): J18.9 - Pneumonia, unspecified organism (3) COPD (chronic obstructive pulmonary disease): Status: Acute Qualifiers: COPD type: unspecified COPD Qualified Code(s): J44.9 - Chronic obstructive pulmonary disease, unspecified Category: Medical Code(s): J44.9 - Chronic obstructive pulmonary disease, unspecified (4) Nausea: Status: Acute Category: Medical Code(s): R11.0 - Nausea (5) Diarrhea: Status: Acute Qualifiers: Diarrhea type: presumed infectious Qualified Code(s): R19.7 - Diarrhea, unspecified Category: Medical Code(s): R19.7 - Diarrhea, unspecified (6) Personal history of smoking: Status: Acute Category: Social Hx Code(s): Z87.891 - Personal history of nicotine dependence Plan Assessment/plan: The management of this patient was discussed with the emergency department provider and agree with admission for further evaluation/treatment. Elva is a 65-year-old female with past medical history significant for COPD who presents to [facility] with multiple generalized complaints of bodyaches fever and chills, productive cough and left ear pain. Symptoms have progressed over the last several days. X-ray obtained revealing right upper lobe infiltrate suggestive of pneumonia. Broad-spectrum IV antibiotics initiated in the emergency department resumed therapy, blood cultures obtained and pending will follow. Sputum culture requested. Respiratory pathogen panel requested/pe nding. Patient endorsed poor oral intake over the past 24 hours. Noted her only intake was a small amount of Pedialyte. Patient also endorses multiple episodes of diarrhea over the last several days. Concern for dehydration. Gentle IV fluids for hydration overnight. IV antiemetics if needed for nausea. DuoNebs, pulmonary hygiene. Supplemental O2 to keep saturations greater than 90%. Trend/follow labs. 1. Acute respiratory failure with hypoxia/CAP/COPD: Chest x-ray suggestive of right upper lobe pneumonia. Broad-spectrum IV antibiotics initiated with IV Rocephin and azithromycin. Blood cultures obtained and pending, sputum culture and RPP requested/pending. DuoNebs every 6 as needed for shortness of breath/wheezing. Mucolytic and antitussive as needed. Supplemental O2 curre ntly at 2 L. Baseline patient is on room air. Resume supplemental oxygen to keep saturations greater and 90%. IS at bedside. Pulmonary hygiene. 2. Dehydration: secondary to poor oral intake. Underlying infectious process likely contributing factor. Patient also endorses multiple episodes of diarrhea. Gentle IV fluids overnight. Antiemetics with IV Zofran as needed for nausea/vomiting. 3. DVT prophylaxis: Lovenox Full code Regular diet
[2025-10-13 20:15] VITALS: BP 126/78; PULSE 74; RESP 18; TEMP 36.6; O2SAT 98
--- NOTE | 2025-10-13 20:16 | PC.NURSE ---
Patient arrived to floor via wheelchair from ED at 20:10.
[2025-10-13 20:37] VITALS: BP 145/76; PULSE 80; RESP 17; TEMP 36.4; O2SAT 93; BMI 38.2
[2025-10-13] MEDS: 0.9 % SODIUM CHLORIDE 1000ML 1,000 ML 50 ML IV (22:36)
[2025-10-13 22:44] LABS: Microscopic, Urine URINE MICROSCOPIC (MICROSCOPIC)
[2025-10-13 22:45] LABS: Color,Urine YELLOW (Yellow); Glucose,Urine (UA) Negative (Negative); Ketones,Urine 1+ (Negative); Leukocyte Esterase,Urine Negative (Negative); PH,Urine 6.0 (5.0-8.5); Protein,Urine 1+ (Negative); Specific Gravity, Urine 1.025 (1.005-1.030); Urobilinogen,Urine 1.0 EU/dl (0.2)
[2025-10-13 22:56] LABS: Bilirubin,Urine 1+ (Negative)
[2025-10-13 22:57] LABS: Amorphous Sediment,Urine 1+ /lpf; Bacteria,Urine 1+ /lpf; RBC,Urine Occasional #/hpf (0-3); WBC,Urine Occasional #/hpf (0-3)
[2025-10-14] VITALS: BP 129/56; PULSE 58; RESP 17; TEMP 36.8; O2SAT 97
[2025-10-14] MEDS: SODIUM CHLORIDE 3% 15ML NEB 3 ML IH (00:29)
[2025-10-14 00:30] VITALS: PULSE 60; RESP 16
[2025-10-14 04:00] VITALS: BP 149/74; PULSE 61; RESP 16; TEMP 36.6; O2SAT 98; BMI 38.2
[2025-10-14 04:20] LABS: Adenovirus,PCR Not Detected (NotDetected); Chlamydophila Pneumoniae, PCR Not Detected (NotDetected); Coronavirus 19, PCR Not Detected (NotDetected); Coronovirus HKU1,PCR Not Detected (NotDetected); Influenza A, PCR Not Detected (NotDetected); Influenza AH1, 2009 Not Detected (NotDetected); Influenza AH1, PCR Not Detected (NotDetected); Influenza AH3,PCR Not Detected (NotDetected); Influenza B, PCR Not Detected (NotDetected); Mycoplasma Pneumoniae, PCR Not Detected (NotDetected); Parainfluenza 1, PCR Not Detected (NotDetected); Parainfluenza 2, PCR Not Detected (NotDetected); Parainfluenza 3, PCR Not Detected (NotDetected); Parainfluenza 4, PCR Not Detected (NotDetected)
[2025-10-14 06:59] LABS: Hematocrit 42.6 % (37.0-47.0); Hemoglobin 13.9 g/dL (12.2-16.2); Immature Granulocytes % 0.3 %; Mean Corpuscular HGB Conc 32.6 g/dL (31.8-35.4); Mean Corpuscular Hemoglobin 29.8 pg (27.0-31.2); Mean Corpuscular Volume 91.4 fl (81-99); Nucleated Red Blood Cells % 0 %; Platelet Count 180 K/mm3 (142-424); Red Blood Count 4.66 M/mm3 (4.20-5.40); Red Cell Distribution Width-SD 44.1 fL; White Blood Count 6.3 K/mm3 (4.8-10.8)
[2025-10-14 07:02] LABS: Albumin Level 4.1 g/dl (3.5-5.0); Chloride 106 mmol/L (98-107); Sodium 135 mmol/L (136-145)
[2025-10-14 07:03] LABS: Potassium 3.7 mmoL/L (3.5-5.1)
[2025-10-14 07:05] LABS: Alanine Aminotransferase 39 U/L (12-78); Albumin/Globulin Ratio 1.2 (1.1-1.8); Alkaline Phosphatase 96 U/L (38-126); Anion Gap 10.7 mEq/L (5-15); Aspartate Amino Transferase 42 U/L (14-36); Bilirubin,Total 0.5 mg/dl (0.2-1.3); Blood Urea Nitrogen 12 mg/dl (7-17); Calcium 9.0 mg/dl (8.4-10.2); Carbon Dioxide 22 mmol/L (22.0-30.0); Creatinine Clearance Estimated 81 mL/min (50-200); Creatinine,Serum 0.80 mg/dl (0.52-1.04); Estimated Glomerular Filt Rate 72 ml/min (>60); GFR (African American) 87 ML/MIN (>60); Globulin 3.5 g/dL (1.3-3.2); Glucose 140 mg/dl (74-100); Total Protein,Serum 7.6 g/dl (6.3-8.2)
[2025-10-14 08:00] VITALS: BP 137/77; PULSE 103; RESP 18; TEMP 36.9
--- NOTE | 2025-10-14 10:45 | HMH.PHAAMS2 ---
- Antimicrobial Stewardship Review culture & sensitivity review Stewardship interventions: culture & sensitivity review (CURRENTLY ON AZITH AND ROCEPHIN, WBC WNL, AFEBRILE, CX PENDING.)
--- NOTE | 2025-10-14 10:52 | P.DS_ITS ---
General Admission date:: 10/13/25 Discharge date: 10/14/25 HPI HPI HPI: Elva Oliva is a 65-year-old female past medical history significant for osteoarthritis, OAB, COPD. Presents to [facility] due to nasal congestion, sinus drainage, productive cough and left ear pain for the past 3 to 4 days. Exacerbated since onset. Noted symptoms are very similar to when she had COVID-pneumonia a few years ago. Reports that today upon waking she felt fatigued very little energy to get out of bed. Due to progressive symptoms she followed up to the emergency department for further evaluation. Upon workup, she was found to be hypoxic and placed on 2 L nasal cannula. Baseline on room air. Imaging study revealed right upper lobe infiltrate. Patient also endorses poor intake over the past 24 hours due to fatigue and nausea. Denies any episodes of emesis. She also noted multiple episodes of diarrhea over the last several days. Noted subjective fever with chills. Denies any known alleviating or aggravating factors. Denies chest pain, vomiting, urinary symptoms, hemoptysis. Initial ED workup included laboratory studies and imaging. Significant laboratory findings AST 75, CRP 164, UA with 1+ protein, 1+ urobilinogen, 1+ bacteria-notable squamous epithelial (10-20). Imaging obtained per chest x-ray, I personally reviewed showing right upper lobe infiltrate concerning for pneumonia. The patient at bedside she is without acute distress resting in bed comfortably. Currently on 2 L nasal cannula. Hemodynamically stable. Hospital Course Hospital Course Hospital Course: Elva is a 65-year-old female with past medical history significant for COPD who presents to [facility] with multiple generalized complaints of bodyaches fever and chills, productive cough and left ear pain. Symptoms have progressed over the last several days. X-ray obtained revealing right upper lobe infiltrate suggestive of pneumonia. Broad-spectrum IV antibiotics initiated in the emergency department resumed therapy, blood cultures obtained and pending will follow. Sputum culture requested. Respiratory pathogen panel requested/pending. Patient endorsed poor oral intake over the past 24 hours. Noted her only intake was a small amount of Pedialyte. Patient also endorses multiple episodes of diarrhea over the last several days. Concern for dehydration. Gentle IV fluids for hydration overnight. IV antiemetics if needed for nausea. Mauro, pulmonary hygiene. Supplemental O2 to keep saturations greater than 90%. Trend/follow labs. Able to wean to room air by morning. Feeling significantly better. Ate breakfast. Positive for RSV. Given her improvement to room air, will complete 5-day course of antibiotics for pneumonia and discharged home with plan for follow-up with PCP. Problems addressed as follows: Acute respiratory failure with hypoxia/CAP/COPD: Chest x-ray suggestive of right upper lobe pneumonia. Broad-spectrum IV antibiotics initiated with IV Rocephin and azithromycin. Blood cultures obtained and pending, sputum culture and RPP requested/pending. Respiratory panel found to be positive for RSV. Given her time course of 6 to 7 days of symptoms, states was her worst day. Anticipate improvement over the next 3 to 5 days. Transitioned to oral cefdinir and azithromycin to complete course with treatment for community-acquired pneumonia. Able to wean to room air by morning. Maintaining sats in the mid 90s. Feeling better and tolerating p.o. intake. Will discharge home to complete conservative management for pneumonia and respiratory infection. Dehydration: secondary to poor oral intake. Underlying infectious process likely contributing factor. Patient also endorses multiple episodes of diarrhea. Gentle IV fluids overnight. Antiemetics with IV Zofran as needed for nausea/vomiting. [employer] better by morning. Tolerating p.o. intake. Labs normal with BUN 12, creatinine 0.8. Electrolytes within normal range. White count normal at 6.3. Total time spent on discharge 32 minutes in counseling, documentation, chart review, and direct care with patient. Exam Data for Last 24 hours Vital signs and Labs for Last 24 Hours: Temp Pulse Resp BP Pulse Ox O2 Del Method O2 Flow Rate 98.5 F 103 H 18 137/77 98 Nasal Cannula 2 10/14/25 08:00 10/14/25 08:00 10/14/25 08:00 10/14/25 08:00 10/14/25 04:00 10/14/25 06:52 10/14/25 06:52 Laboratory Results - last 24 hr 10/13/25 15:58: SARS-CoV-2 (PCR) Not detected, Influenza A Untype (PCR) Not detected, Influenza Type B (PCR) Not detected 10/13/25 16:32: WBC 10.6, RBC 4.92, Hgb 14.7, Hct 44.7, MCV 90.9, MCH 29.9, MCHC 32.9, RDW 13.0, Plt Count 173, MPV 11.1 H, Neut % (Auto) 80.3 H, Lymph % (Auto) 13.2, [place] % (Auto) 5.8, Eos % (Auto) 0.1, Baso % (Auto) 0.2, Neut # (Auto) 8.5 H, Lymph # (Auto) 1.4, [place] # (Auto) 0.6, Eos # (Auto) 0.0, Baso # (Auto) 0.0, Sodium 135 L, Potassium 4.2, Chloride 103, Carbon Dioxide 24, Anion Gap 12.2, BUN 13, Creatinine 1.00, Estimated Creat Clear 43, Estimated GFR 55 L, Est GFR ( Amer) 67, Glucose 122 H, Calcium 9.2, Total Bilirubin 0.9, AST 75 H, ALT 52, Alkaline Phosphatase 121, Troponin I < 0.01, C-Reactive Protein 164.0 H, Total Protein 8.6 H D, Albumin 4.6, Globulin 4.0 H, Albumin/Globulin Ratio 1.2, Lipase 46 10/13/25 22:40: Urine Color Yellow, Urine Appearance Sl cloudy, Urine pH 6.0, Ur Specific [place] 1.025, Urine Protein 1+ A, Urine Glucose (UA) Negative, Urine Ketones 1+, Urine Blood Negative, Urine Nitrate Negative, Urine Bilirubin 1+ A, Urine Urobilinogen 1.0, Ur Leukocyte Esterase Negative, Urine RBC Occasional, Urine WBC Occasional, Ur Squamous Epith Cells 10-20, Amorphous Sediment 1+, Urine Bacteria 1+ 10/14/25 04:15: Chlamy pneumoniae PCR Not detected, Adenovirus (PCR) Not detected, B. pertussis DNA (PCR) Not detected, Coronavirus OC43 (PCR) Not detected, Coronavirus HKU1 (PCR) Not detected, Coronavirus 229E (PCR) Not detected, SARS-CoV-2 (PCR) Not detected, Coronavirus NL63 (PCR) Not detected, Human Metapneumovir PCR Not detected, Influenza A (H1) PCR Not detected, Influ A (H1N1/09) PCR Not detected, Influenza A (H3) PCR Not detected, Influenza Type A (PCR) Not detected, Influenza Type B (PCR) Not detected, M. pneumoniae (PCR) Not detected, Parainfluenza 1 (PCR) Not detected, Parainfluenza 2 (PCR) Not detected, Parainfluenza 3 (PCR) Not detected, Parainfluenza 4 (PCR) Not detected, RSV (PCR) Detected A, Entero/Rhino (PCR) Not detected 10/14/25 06:40: WBC 6.3 D, RBC 4.66, Hgb 13.9, Hct 42.6, MCV 91.4, MCH 29.8, MCHC 32.6, RDW 13.1, Plt Count 180, MPV 11.2 H, Neut % (Auto) 71.9, Lymph % (Auto) 22.0, [place] % (Auto) 5.1, Eos % (Auto) 0.5, Baso % (Auto) 0.2, Neut # (Auto) 4.5, Lymph # (Auto) 1.4, [place] # (Auto) 0.3, Eos # (Auto) 0.0, Baso # (Auto) 0.0, Sodium 135 L, Potassium 3.7, Chloride 106, Carbon Dioxide 22, Anion Gap 10.7, BUN 12, Creatinine 0.80, Estimated Creat Clear 81, Estimated GFR 72, Est GFR ( Amer) 87 D, Glucose 140 H, Calcium 9.0, Total Bilirubin 0.5, AST 42 H D, ALT 39, Alkaline Phosphatase 96, Total Protein 7.6, Albumin 4.1 D, Globulin 3.5 H, Albumin/Globulin Ratio 1.2 I & O for Last 24 hours: Intake & Output 10/11/25 10/12/25 10/13/25 10/14/25 23:59 23:59 23:59 23:59 Intake Total 350 / 590 480 / 480 Balance 350 / 590 480 / 480 Weight 94.12 kg 94.393 kg Constitutional Constitutional: no acute distress, obese and cooperative *Routine HEENT Exam Head: Present normocephalic Eye: Present EOMI and PERRL ENT: Present mucous membranes moist Comments: Redness around nose consistent with rhinorrhea/cold *Routine Neck Exam Neck: Present supple; Absent lymphadenopathy *Routine Respiratory Exam Respiratory: Present CTA bilaterally and rhonchi (Present when she coughs); Absent wheezes or crackles *Routine Cardiovascular Exam Cardiovascular: Present RRR *Routine Abdominal Exam Abdominal: Present soft and normoactive bowel sounds; Absent tenderness *Routine Rectal Exam Patient deferred: visual exam *Routine Exam Patient deferred: external exam *Routine Extremities Exam Extremities: Absent cyanosis, clubbing or edema *Routine Skin Exam Skin: Present intact and warm; Absent rash *Routine Neurological Exam Neurological: Present alert, oriented X3 and moving all extremities; Absent altered mental status Results Data Completed and Pending Labs on day of discharge: Labs from last 24 hours 10/14/25 10/14/25 10/13/25 06:40 04:15 22:40 WBC 6.3 D RBC 4.66 Hgb 13.9 Hct 42.6 MCV 91.4 MCH 29.8 MCHC 32.6 RDW 13.1 Plt Count 180 MPV 11.2 H Neut % (Auto) 71.9 Lymph % (Auto) 22.0 [place] % (Auto) 5.1 Eos % (Auto) 0.5 Baso % (Auto) 0.2 Neut # (Auto) 4.5 Lymph # (Auto) 1.4 [place] # (Auto) 0.3 Eos # (Auto) 0.0 Baso # (Auto) 0.0 Sodium 135 L Potassium 3.7 Chloride 106 Carbon Dioxide 22 Anion Gap 10.7 BUN 12 Creatinine 0.80 Estimated Creat Clear 81 Estimated GFR 72 Est GFR ( Amer) 87 D Glucose 140 H Calcium 9.0 Total Bilirubin 0.5 AST 42 H D ALT 39 Alkaline Phosphatase 96 Troponin I C-Reactive Protein Total Protein 7.6 Albumin 4.1 D Globulin 3.5 H Albumin/Globulin Ratio 1.2 Lipase Urine Color Yellow Urine Appearance Sl cloudy Urine pH 6.0 Ur Specific [place] 1.025 Urine Protein 1+ A Urine Glucose (UA) Negative Urine Ketones 1+ Urine Blood Negative Urine Nitrate Negative Urine Bilirubin 1+ A Urine Urobilinogen 1.0 Ur Leukocyte Esterase Negative Urine RBC Occasional Urine WBC Occasional Ur Squamous Epith Cells 10-20 Amorphous Sediment 1+ Urine Bacteria 1+ Chlamy pneumoniae PCR Not detected Adenovirus (PCR) Not detected B. pertussis DNA (PCR) Not detected Coronavirus OC43 (PCR) Not detected Coronavirus HKU1 (PCR) Not detected Coronavirus 229E (PCR) Not detected SARS-CoV-2 (PCR) Not detected Coronavirus NL63 (PCR) Not detected Human Metapneumovir PCR Not detected Influenza A (H1) PCR Not detected Influ A (H1N1/09) PCR Not detected Influenza A (H3) PCR Not detected Influenza Type A (PCR) Not detected Influenza A Untype (PCR) Influenza Type B (PCR) Not detected M. pneumoniae (PCR) Not detected Parainfluenza 1 (PCR) Not detected Parainfluenza 2 (PCR) Not detected Parainfluenza 3 (PCR) Not detected Parainfluenza 4 (PCR) Not detected RSV (PCR) Detected A Entero/Rhino (PCR) Not detected 10/13/25 10/13/25 16:32 15:58 WBC 10.6 RBC 4.92 Hgb 14.7 Hct 44.7 MCV 90.9 MCH 29.9 MCHC 32.9 RDW 13.0 Plt Count 173 MPV 11.1 H Neut % (Auto) 80.3 H Lymph % (Auto) 13.2 [place] % (Auto) 5.8 Eos % (Auto) 0.1 Baso % (Auto) 0.2 Neut # (Auto) 8.5 H Lymph # (Auto) 1.4 [place] # (Auto) 0.6 Eos # (Auto) 0.0 Baso # (Auto) 0.0 Sodium 135 L Potassium 4.2 Chloride 103 Carbon Dioxide 24 Anion Gap 12.2 BUN 13 Creatinine 1.00 Estimated Creat Clear 43 Estimated GFR 55 L Est GFR ( Amer) 67 Glucose 122 H Calcium 9.2 Total Bilirubin 0.9 AST 75 H ALT 52 Alkaline Phosphatase 121 Troponin I < 0.01 C-Reactive Protein 164.0 H Total Protein 8.6 H D Albumin 4.6 Globulin 4.0 H Albumin/Globulin Ratio 1.2 Lipase 46 Urine Color Urine Appearance Urine pH Ur Specific [place] Urine Protein Urine Glucose (UA) Urine Ketones Urine Blood Urine Nitrate Urine Bilirubin Urine Urobilinogen Ur Leukocyte Esterase Urine RBC Urine WBC Ur Squamous Epith Cells Amorphous Sediment Urine Bacteria Chlamy pneumoniae PCR Adenovirus (PCR) B. pertussis DNA (PCR) Coronavirus OC43 (PCR) Coronavirus HKU1 (PCR) Coronavirus 229E (PCR) SARS-CoV-2 (PCR) Not detected Coronavirus NL63 (PCR) Human Metapneumovir PCR Influenza A (H1) PCR Influ A (H1N1/09) PCR Influenza A (H3) PCR Influenza Type A (PCR) Influenza A Untype (PCR) Not detected Influenza Type B (PCR) Not detected M. pneumoniae (PCR) Parainfluenza 1 (PCR) Parainfluenza 2 (PCR) Parainfluenza 3 (PCR) Parainfluenza 4 (PCR) RSV (PCR) Entero/Rhino (PCR) DS: Diagnosis Discharge Diagnosis (1) Acute respiratory failure with hypoxia: Status: Acute Code(s): J96.01 - Acute respiratory failure with hypoxia (2) Community acquired pneumonia of right upper lobe of lung: Status: Acute Code(s): J18.9 - Pneumonia, unspecified organism (3) COPD (chronic obstructive pulmonary disease): Status: Acute Code(s): J44.9 - Chronic obstructive pulmonary disease, unspecified Qualifiers: COPD type: unspecified COPD Qualified Code(s): J44.9 - Chronic obstructive pulmonary disease, unspecified (4) Nausea: Status: Acute Code(s): R11.0 - Nausea (5) Diarrhea: Status: Acute Code(s): R19.7 - Diarrhea, unspecified Qualifiers: Diarrhea type: presumed infectious Qualified Code(s): R19.7 - Diarrhea, unspecified (6) Personal history of smoking: Status: Acute Code(s): Z87.891 - Personal history of nicotine dependence Meds Home Medications and Allergies Home Medications ?Medication ?Instructions ?Recorded ?Confirmed ?Type azithromycin 500 mg tablet 500 mg PO DAILY 2 days #2 t abs 10/14/25 Rx cefdinir 300 mg capsule 300 mg PO BID 3 days #6 caps 10/14/25 Rx New Prescriptions to Start Prescriptions: Nick Barbosa cefdinir Nick Mullins Allergies Allergy/AdvReac Type Severity Reaction Status Date / Time No Known Allergies Allergy Verified 08/02/25 09:25 Discharge Plan Disposition Patient Disposition: Home, Self-Care Condition: Fair Follow up Plan Follow up with: Francie Lauren APRN [Primary Care Provider, Family Practice] - Enter time for follow up Referral Note: please call for appointment Prescriptions/Medication Reconciliation: New azithromycin 500 mg tablet 500 mg PO DAILY 2 Days Qty: 2 0RF Rx Instructions: start evening of 10/14/25 cefdinir 300 mg capsule 300 mg PO BID 3 Days Qty: 6 0RF Rx Instructions: start morning of 10/15/25 Problem Reconciliation Problems Reviewed?: Yes Patient Discharge Instructions ACTIVITY: Continue current activity DIET: continue same diet Patient Instructions: DI for Shortness of Breath, Stop Light Pneumonia Print Language: Portuguese Providers Primary Care Provider: Francie Lauren Admit Provider: James Hdez Attending Provider: James Hdez
--- NOTE | 2025-10-16 11:17 | SW/DCPLANNER ---
Spoke with patient on the phone. Patient stated that she is much better. Patient stated that she is aware of her upcoming appointments. Patient stated that she was able to get her new medicine picked up from the Pharmacy. Patient stated that she has no concerns or questions at this time. Shantelle Renner
== END 2025-10-14 12:49 | disposition home or self-care (01) ==
LOC: ER 17:27 → 2ND 18:38
PROVIDERS: Nurse Practitioner Acute Care; Admitting Provider Student in an Organized Health Care Education/Training Program; Emergency Provider Student in an Organized Health Care Education/Training Program; PCP Nurse Practitioner; Visit Provider Student in an Organized Health Care Education/Training Program
DX: J96.01 Acute respiratory failure with hypoxia (principal); J18.9 Pneumonia, unspecified organism; J44.9 Chronic obstructive pulmonary disease, unspecified; R11.0 Nausea; R19.7 Diarrhea, unspecified; Z87.891 Personal history of nicotine dependence; M17.11 Unilateral primary osteoarthritis, right knee; Z90.49 Acquired absence of other specified parts of digestive tract; Z90.710 Acquired absence of both cervix and uterus
CPT/HCPCS: 0223U; 71046; 80053; 81001; 83690; 84484; 85025; 86140; 87040; 87636; 89220; 93005; 96365; 96366; 96375; 99285; G0378; J0456; J0696; J1650; J1885; J7030; J7050